=== PATIENT | female | born 1950 | race Caucasian/White ===

== ENCOUNTER 2017-10-14 08:14 | Inpatient (IN) | payer OTHER ==
[~2017-10-14] VITALS: Ht 165.1 cm; Wt 34.0 kg
--- NOTE | ~2017-10-14 | O ---
[facility] [place] [address] OPERATIVE REPORT Name: DAVE ARIZA Room #: 423-1 ADM IN M.R.#: [id number] Admission: 10/14/17 Attend Phys: Obed Jaime MD Discharge: Date of : 46 Report #: [id number] THIS REPORT FOR: //name// CC: Isael Jaime DATE OF SERVICE: 10/14/2017 PREOPERATIVE DIAGNOSES: Abdominal pain, back pain, bloating, weight loss, small bowel intussusception, possible small bowel tumor. POSTOPERATIVE DIAGNOSES: Abdominal pain, back pain, bloating, weight loss, small bowel intussusception, possible small bowel tumor, 2 small bowel lesions in the ileum with mesenteric implant, possible carcinoid. SURGEON: Obed Jaime M.D. ANESTHESIA: General. PROCEDURES PERFORMED: 1. Diagnostic laparoscopy. 2. Mini laparotomy with small bowel resection, removing 110 cm. This was about 2 feet proximal to the ileocecal valve. COMPLICATIONS: None. ESTIMATED BLOOD LOSS: 40 mL. DESCRIPTION OF PROCEDURE: With the patient under anesthesia, abdomen was prepped and draped in a sterile fashion. Timeout was performed. A 1 cm incision was made above the umbilicus. Veress needle was then placed through peritoneum, abdominal cavity was insufflated with CO2. The pneumoperitoneum was established rather easily. The patient is also thin from her severe weight loss. A 5 mm trocar was placed through the fascia under visualization. A second 5 mm trocar was placed in lateral abdomen. The liver appeared normal. The colon did have significant stool. There was a tattoo april in the left distal transverse colon from a prior procedure in 2016. The small bowel did have a inhomogeneous appearance. The proximal small bowel was small, the distal small bowel was more dilated, but there was no specific site of inflammation. There was no specific site of intussusception. I did have a fairly good look at the small bowel. At this point I decided to do a mini laparotomy. A small incision about 3 inches was made in the lower abdomen. Fascia was opened under visualization. Peritoneum was opened. The CO2 that was previously present was evacuated. The small bowel was then examined from ligament of Treitz. The small bowel had a normal appearance. When I got down to the ileum, there was a [facility] [address] [place] [address] OPERATIVE REPORT Name: ANNITADAVE Sandra Room #: [address] [place] [address] [place] ..#: [id number] Admission: 10/14/17 Attend Phys: Obed Jaime MD Discharge: Date of : 48 Report #: [id number] 3 cm mass identified in the mesentery. This was suspicious for a metastatic implant. I found in the same region 2 nodules within the small bowel. The distal one was more prominent, measured about 1.5 cm with puckering. This was involving the antimesenteric wall. More proximally, about a feet and a half more proximal there was a second nodule that was present and it was not quite as big and there was thickening in the bowel with slight puckering. I am suspicious that both of these represent carcinoid. The mesenteric mass was evaluated and it has grown into the mesenteric vessel. At this point, I do not think that this mass can be removed without dividing the vessel. The peritoneum over this area was opened up. The root of the mesentery was isolated below the mass. Part of the dissection was used with LigaSure. Then, the mesentery that was attaching to the implant was divided proximally. This was divided between clamps and then doubly ligated with 2-0 Vicryl ties proximally. The bowel did demarcate, was not a dramatic difference, but slight duskiness to the bowel that was supplied by the vessel. This included the bowel that was diseased. So, instead of resecting the bowel lesion in two separate resections, this was removed en bloc. This included 10 cm of small bowel. This was approximately 1-1/2 from the ileocecal valve. The rest of the bowel was viable. The mesentery division was followed to the bowel, at which point the bowel was viable along the edges here. The bowel was divided with DIEGO. Proximally and distally it was divided without difficulty. The 2 lesions were removed again en bloc. Specimens will be sent to pathology. The two ends of the bowel were aligned. A 3-0 Vicryl was used to sew the antimesenteric part of the bowel together. The corner staple line was removed. DIEGO was placed down each limb. DIEGO was brought together, fired, creating a [id number] anastomosis. No bleeding was seen from the anastomosis. It had good blood supply. The enterotomy where the DIEGO was put through was closed with TA 60. I was able to milk some contents distally to this area and it dilated well and there was no leak. There is a good opening, about 2.5 cm size opening between the bowel. The mesentery was then reapproximated with 3-0 Vicryl suture. No bleeding from the mesentery. A small 2 cm hematoma was found in the mesentery proximally, but this was not expanding. Abdominal cavity was irrigated. The abdomen was then closed with 0 looped PDS. Skin was irrigated. Skin was closed with 5-0 PDS. The 5 mm trocar site was closed with 5-0 PDS. Band-Aids applied. A 4 x 4 was placed over the main incision and an Op-Site was used for dressing. The patient tolerated the procedure well. By: 1339 [id number] Obed Jaime MD /nt
--- NOTE | ~2017-10-14 | HC ---
[facility] [place] [address] CONSULTATION Name: DAVE ARIZA Room #: 225-P ADM IN M.R.#: [id number] Admission: 10/14/17 Attend Phys: Obed Jaime MD Discharge: Date of : 46 Report #: [id number] THIS REPORT FOR: //name// CC: Isael Jaime DATE OF SERVICE: 10/19/2017 REQUESTING PHYSICIAN: Obed Jaime MD REASON FOR CONSULTATION: Ileal carcinoid tumor. HISTORY OF PRESENT ILLNESS: The patient is a very pleasant 67-year-old female from the [place] area who lives in [facility] at [address] [place] [address], who reports about a 10-year history of abdominal pain. She also had had some GI bleeding about 2 years ago, had a colonoscopy with removal of a polyp; bleeding went away but found that the pain has persisted. She also then because of various reasons, had a CT abdomen, I believe at the [facility] or diagnostic imaging at the [facility], and I am not sure what this showed, there is no copy on the chart. The patient underwent surgery on 10/16/[address] Obed Jaime. He describes finding a mesenteric mass right in the bowel and following two small ileal nodules. I do not see that he saw other residual disease. The path report talks about mesenteric nodules pleural but then only gives a measurement of one, so I am not sure if that is correct. The patient prior to this had had maybe a 30-pound weight loss over the last 10 years. He had if anything constipation. No diarrhea, no flushing, no headaches. No unusual palpitations. No red flushing, no drop attacks. No dysuria, no blood in urine or stool recently. PAST MEDICAL HISTORY: Notable for Achilles tendon rupture in the past. SOCIAL HISTORY: She studied dance and ballet at [employer] and talked for quite a while. 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 FAMILY HISTORY: Mother of old age several years ago. Father from what sounds like, maybe was chronic myelogenous leukemia; in 1969, he worked at [employer] and maybe had beryllium exposure, unsure if that is related. No children, I believe she has had no pets at home. MEDICATIONS: Here at this time in the hospital currently include potassium chloride 20 mEq b.i.d., magnesium hydroxide p.r.n., Tylenol p.r.n., Lovenox 40 mg in the morning, fentanyl p.r.n., Zofran p.r.n. [facility] [address] [place] [address] CONSULTATION Name: DAVE ARIZA Room #: 225-P [facility] IN M..#: [id number] Admission: 10/14/17 Attend Phys: Obed Jaime MD Discharge: Date of : 46 Report #: [id number] LABORATORY DATA: BUN of 4, creatinine of 0.3. White count of 54, hemoglobin 13.1, MCV 89.6, platelets 255. Differential back in 2016 unremarkable. Liver functions not available on this admit. Imaging from this admit, not anything recent. PHYSICAL EXAMINATION: GENERAL: The patient appears her stated age. VITAL SIGNS: Height is 5 feet 5 inches, which is 165.1 cm; weight is 75 pounds, which is 34.02 kilograms. Blood pressure is 131/81 in the right arm. O2 sat 98%, respirations 18, pulse 86. She is afebrile over the last 24 hours, the current temperature 98.1 this morning. MOOD: She is alert, pleasant, slightly anxious. NEUROLOGIC: Face is symmetrical. Speech and thought pattern appear to be normal. She is moving all extremities without any tremor or dysfunction. LUNGS: Appear to be clear with symmetric expansion without wheezes, rhonchi. HEART: Appears regular rate. LYMPHATICS: No enlarged lymph nodes in the supraclavicular, cervical, axillary or inguinal region. ABDOMEN: Postop, not examined today. EXTREMITIES: Without clubbing or cyanosis. DISCUSSION: Discussed with the patient that she has had resection of an ileal carcinoid done as an outpatient, we would like to consider a Dotatate PET for staging studies since she had a mesenteric mass and also the lymph node involvement. She asked whether her abdominal pain will resolve. I told her I am not sure, but I am not sure if this was causing it. We also talked we will be checking a chromogranin A with urinary 5-HIAA 24-hour urine studies as well as a serotonin level. We will also need to get the CAT scan from [facility]. The patient would like to see me in 3 or 4 weeks; before scheduling any of these tests, we will call her. We will also see her tomorrow if she is still in the hospital. We will also be aware of if she asks questions. We did give her one of my business cards. <ELECTRONICALLY SIGNED> By: Altaf King MD 10/20/17 0707 [id number] [id number] Altaf King MD /nt
--- NOTE | ~2017-10-14 | PATH ---
[facility] [place] [address] PATHOLOGY RPT PROCEDURE Name: HARINI CHAN Sandra Room #: 225-P ADM IN M.R.#: [id number] Admission: 10/14/17 Date of : 46 Discharge: Report #: [id number] Path Case #: [id number] [facility] Accession Number: [id number] . 01 Material submitted: . SMALL BOWEL STITCH EDDY TUMOR . 01 Clinical history: . 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 02 Diagnosis: Small bowel, small bowel tumor x 2, resection: - WELL DIFFERENTIATED NEUROENDOCRINE TUMOR (CARCINOID TUMOR), PLEASE SEE SYNOPTIC REPORT ASSEMBLED. - TWO SEPARATE TUMOR NODULES IDENTIFIED (MULTIPLE TUMORS) - EXTENSIVE LYMPH-VASCULAR SPACE INVASION IDENTIFIED - MESENTERIC NODULES IDENTIFIED WITH THE LARGEST NODULE MEASURING 3.5 CM IN GREATEST DIMENSION. - TWELVE LYMPH NODES SHOWING METASTATIC CARCINOID TUMOR OF 21 SAMPLED (12/21). - Margins of resection free of malignancy. . . Cancer Case Summary . SMALL BOWEL NEUROENDOCRINE TUMOR . Procedure ___ Segmental resection, small intestine . Tumor Site ___ Small intestine, not otherwise specified . Tumor Size Greatest dimension (centimeters): 2.1 cm . Tumor Focality ___ Multifocal (specify number of tumors): 2 . Histologic Type and Grade ___ G2: Well-differentiated neuroendocrine tumor . Mitotic Rate ___ 2-20 mitoses/2mm2 . Ki-67 Labeling Index ___ Not applicable [facility] [address] [place] [address] PATHOLOGY RPT PROCEDURE Name: ANNITAHARINI Room #: 225-P [facility] IN .R.#: [id number] Admission: 10/14/17 Date of : 46 Discharge: Report #: [id number] Path Case #: [id number] . Tumor Extension ___ Tumor invades visceral peritoneum (serosa) . Margins ___ All margins are uninvolved by tumor Margins examined: both mucosal margins free; not designated Distance of tumor from closest margin (millimeters or centimeters): 9 mm . Radial or Mesenteric Margin ___ Uninvolved by tumor . Lymphovascular Invasion ___ Present . Perineural Invasion ___ Present . Large Mesenteric Masses (>2 cm) ___ Present, largest measuring 3.5 cm Specify number: multiple . Regional Lymph Nodes . Number of Lymph Nodes Involved: 12 . Number of Lymph Nodes Examined:21 . Pathologic Stage Classification (pTNM, AJCC 8th Edition) Note: Reporting of pT, pN, and (when applicable) pM categories is based on information available to the pathologist at the time the report is issued. . . TNM Descriptors ___ m (multiple primary tumors) . Primary Tumor (pT) ___ pT4(m): Invades visceral peritoneum (serosal) or other organs or adjacent structures . Regional Lymph Nodes (pN) ___ pN2: Large mesenteric masses (>2 cm) and/or extensive douglas deposits (12 or greater), especially those that encase the superior mesenteric vessels . Distant Metastasis ___ pMx: Not known LBQ/10/18/2017 [facility] [address] [place] [address] PATHOLOGY RPT PROCEDURE Name: HARINI CHAN Room #: 225-P [facility] IN [facility].#: [id number] Admission: 10/14/17 Date of : 46 Discharge: Report #: [id number] Path Case #: [id number] . 02 Comment: Shipping Room Supervisor slides were co-reviewed by Dr. Jerry Burnett who concurs with my diagnosis. . Findings of this case were discussed with Dr. Obed Jaime at approximately 12:50 p.m. on 10/18/17. (IUV:db; 10/18/2017) . 02 Electronically signed: . Rosita Bey MD, Pathologist NPI- [id number] . 01 Gross description: . The specimen is received in formalin, labeled "Harini Chan, small bowel, stitch eddy tumor" and consists of an unoriented segment of small intestine measuring 46.8 cm in length and ranging from 2.2-3.1 cm in diameter. Both resection margins are stapled closed. The serosa is eden-green and shiny with two sutures designating "tumor". The mesenteric fat measures up to 5.7 cm. There is a mesenteric nodule which measures 4.6 x 2.9 x 2.8 cm and extends to within 2.4 cm of the tumor designating sutures. The nodule has two cauterized possible margins which are differentially inked blue and green. The small intestine is opened longitudinally to reveal two masses. The first measures 2.1 x 1.8 x 0.9 cm and is green-eden and sessile mass which extends to 13.5 cm of the nearest resection margin, 31.0 cm of the farthest resection margin, and 1.5 cm of the mesenteric margin. Sectioning through the mass reveals invasion into the muscular wall. The second mass is green-eden, sessile and measures 1.4 x 1.2 x 0.6 cm which extends to within 0.9 cm of the nearest stapled resection margin, greater than 40 cm from the farthest resection margin, and 0.8 cm of the mesenteric margin. Sectioning through the second mass reveals containment within the mucosa. The remainder of the mucosa is green-eden with no additional polyps or mass lesions. Sectioning through the mesenteric nodule reveals multiple lymph node candidates ranging from 0.2 cm to 3.5 cm in greatest dimension. The mesenteric fat is sectioned to reveal multiple lymph node candidates ranging from 0.2 cm to 0.9 cm. Shipping Room Supervisor sections are submitted as follows: . A1: Resection margin closest to mass one A2: Resection margin furthest from mass one and closest to mass two A3-A9: Entire first mass A10-A13: Entire second mass A14: Unremarkable mucosa A15-A20: Shipping Room Supervisor mesenteric nodule/lymph nodes A21-A22: Additional intact lymph node candidates (SDY; 10/17/2017) [facility]/[address] [address] PATHOLOGY RPT PROCEDURE Name: HARINI CHAN Room #: 225-P ADM IN M.R.#: [id number] Admission: 10/14/17 Date of : 46 Discharge: Report #: [id number] Path Case #: [id number] . 02 Pathologist provided ICD-10: C7A.019, C7B.01 . 02 CPT . 206218 Performed at: 01 [facility] Daria Coles [address], [place], [place] [id number] MD Alex Pimentel MD Phone: [phone] Performed at: [address] [facility] [address] [id number] MD Rosita Bey MD Phone: [phone]
--- NOTE | ~2017-10-14 | HC ---
[facility] [place] [address] CONSULTATION Name: DAVE ARIZA Room #: 423-1 ADM IN M.R.#: [id number] Admission: 10/14/17 Attend Phys: Oebd Jaime MD Discharge: Date of : 48 Report #: [id number] THIS REPORT FOR: //name// CC: Martha Jaime ATTENDING PHYSICIAN: Dr. Jaime. REASON FOR CONSULTATION: Medical management. HISTORY OF PRESENT ILLNESS: The patient is a 67-year-old female with a history of abdominal pain. She was admitted for surgical treatment due to findings of a mass. She was a new patient to our practice several days ago and saw Dr. Haji. She reported a 20-pound weight loss with abdominal discomfort and distention, but also problems with constipation. Lab work obtained at that time was fairly unremarkable and a CT of the abdomen was obtained at an outlying facility. I do not have a copy of that report, but it apparently suggested an ileal mass. She was taken to the operating room yesterday by Dr. Jaime where 2 ileal masses were found and she underwent diagnostic laparoscopy with small bowel resection and resection of mesenteric mass. PAST MEDICAL HISTORY: Osteoporosis. She had vertebroplasty with kyphoplasty in 2016. PAST SURGICAL HISTORY: None. FAMILY HISTORY: Noncontributory. SOCIAL HISTORY: No chronic alcohol or tobacco use. ALLERGIES: CORTISONE. MEDICATIONS: None. REVIEW OF SYSTEMS: She complains of some mild nausea. Otherwise, no headache, chest pain, shortness of breath. She is not having significant abdominal pain. No diarrhea, dysuria, myalgias, arthralgias, syncope or fall. PHYSICAL EXAMINATION: VITAL SIGNS: Temperature 37.1, pulse 73, respirations 16, blood pressure 136/79, O2 sat 90% on room air. GENERAL: She is awake and alert, in no distress. HEAD AND NECK: Unremarkable. LUNGS: Clear. HEART: Regular. ABDOMEN: Soft, hypoactive bowel sounds. She has a closed midline incision with a dressing. [facility] [address] [place] [address] CONSULTATION Name: DAVE ARIZA Room #: [address] [place] [address] [place] [facility].#: [id number] Admission: 10/14/17 Attend Phys: Obed Jaime MD Discharge: Date of : 46 Report #: [id number] EXTREMITIES: No cyanosis, clubbing, edema. NEUROLOGIC: She has diffuse muscle atrophy and signs of cachexia throughout. LABORATORY REVIEW: Potassium is 3.0. ASSESSMENT: 1. Ileal mass. 2. Small-bowel obstruction. 3. Status post diagnostic laparoscopy and bowel resection. 4. Hypokalemia. PLAN: I will follow her medically during her stay. Replace electrolytes for now. Thank you for the consultation. <ELECTRONICALLY SIGNED> By: Pa Campbell MD 10/16/17 0841 0838 1120 Pa Campbell MD /nt
[~2017-10-14 08:14] MED LIST: ATIVAN0.5 MG PO; COLACE100 MG PO; MIRALAX17 GM PO; NORCO 5-325 TA1 EACH PO; PAXIL10 MG; PROTONIX40 MG PO; VITAMIN B-12500 MCG; VOL-NATE TABLE1 EACH
[2017-10-14 15:23] VITALS: BP 121/75
[2017-10-14 20:00] VITALS: BP 158/94
[2017-10-15 04:31] VITALS: BP 136/79
[2017-10-15 04:58] LABS: HEMATOCRIT 39.2 % (37.0-47.0); HEMOGLOBIN 13.2 gm/dL (12.0-15.0); MCH 30.2 pg (26.0-34.0); MCHC 33.6 g/dL (28.0-37.0); MCV 89.8 fL (80.0-100.0); RBC 4.36 mil/uL (4.20-5.00); RDW 13.2 % (10.5-14.5); WBC 10.2 thou/uL (4.0-11.0)
[2017-10-15 05:15] LABS: CALCIUM 7.9 mg/dL (8.5-10.1); CREATININE 0.4 mg/dL (0.6-1.0)
[2017-10-15 09:00] VITALS: BP 136/79
[2017-10-15 20:00] VITALS: BP 153/80
[2017-10-16 05:03] VITALS: BP 134/85
[2017-10-16 06:04] LABS: HEMATOCRIT 38.6 % (37.0-47.0); HEMOGLOBIN 13.1 gm/dL (12.0-15.0); MCH 30.4 pg (26.0-34.0); MCHC 33.9 g/dL (28.0-37.0); MCV 89.6 fL (80.0-100.0); RBC 4.31 mil/uL (4.20-5.00); WBC 5.4 thou/uL (4.0-11.0)
[2017-10-16 06:16] LABS: CALCIUM 8.5 mg/dL (8.5-10.1); CREATININE 0.4 mg/dL (0.6-1.0)
[2017-10-16 06:32] LABS: POTASSIUM 3.3 mmol/L (3.5-5.1)
[2017-10-16 16:07] VITALS: BP 140/91
[2017-10-16 19:40] VITALS: BP 130/91
[2017-10-17 03:45] VITALS: BP 148/99
[2017-10-17 06:03] LABS: CALCIUM 8.3 mg/dL (8.5-10.1); CREATININE 0.3 mg/dL (0.6-1.0); POTASSIUM 3.3 mmol/L (3.5-5.1)
[2017-10-17 07:46] VITALS: BP 143/94
[2017-10-17 16:00] VITALS: BP 128/82
[2017-10-17 19:40] VITALS: BP 133/87
[2017-10-18 04:35] VITALS: BP 114/68
[2017-10-18 07:12] VITALS: BP 109/73
[2017-10-18 08:31] VITALS: BP 109/73
[2017-10-18 12:40] VITALS: BP 145/92
[2017-10-18 20:00] VITALS: BP 136/74
[2017-10-19 07:20] VITALS: BP 131/81
[2017-10-19 20:21] VITALS: BP 128/79
[2017-10-20 08:09] VITALS: BP 124/79
[2017-10-20 19:21] VITALS: BP 138/89
[2017-10-21 08:25] VITALS: BP 128/87
[2017-10-21 21:24] VITALS: BP 127/88
[2017-10-22 08:23] VITALS: BP 126/82
[2017-10-22 19:19] VITALS: BP 120/78
[2017-10-23 08:44] VITALS: BP 122/71
[2017-10-23] MEDS ORDERED: ACETAMINOPHEN325 M1 PO (13:29)
[2017-10-23 13:48] VITALS: BP 122/71
[2017-10-23 13:50] VITALS: BP 122/71
[2017-10-23 13:51] VITALS: BP 122/71
== END 2017-10-23 14:50 | disposition home health service (06) | DRG 330 ==
LOC: GI 08:14 → 4E 13:53 → SICU 10-18 11:38
PROVIDERS: Internal Medicine Geriatric Medicine; Surgery
PROC: 0DB80ZZ Excision of Small Intestine, Open Approach (ICD-10-PCS; principal; 2017-10-14)
PROC: 0DJD4ZZ Inspection of Lower Intestinal Tract, Percutaneous Endoscopic Approach (ICD-10-PCS; principal; 2017-10-14)
DX: C17.2 Malignant neoplasm of ileum (principal); K56.1 Intussusception; K56.7 Ileus, unspecified; Z79.899 Other long term (current) drug therapy; M79.81 Nontraumatic hematoma of soft tissue; M81.0 Age-related osteoporosis without current pathological fracture; E87.6 Hypokalemia; Z88.8 Allergy status to other drugs, medicaments and biological substances; Z80.6 Family history of leukemia
CPT/HCPCS: 10783; 15002; 50101; 50411; 50555; 50942; 51390; 51391; 51435; 53307; 53310; 56524; 56525; 56526; 56527; 62110; 62900; 70005

== ENCOUNTER 2018-05-13 21:37 | Inpatient (IN) | payer OTHER ==
[~2018-05-13] VITALS: Ht 160 cm; Wt 36.6 kg
--- NOTE | ~2018-05-13 | D ---
[facility] [place] [address] DISCHARGE SUMMARY Name: DAVE ARIAZ Room #: 224-P ADM IN M.R.#: [id number] Admission: 05/14/18 Attend Phys: Chasity Bell Discharge: Date of : 46 Report #: [id number] THIS REPORT FOR: //name// CC: Nishant Haji FINAL DIAGNOSES: 1. Abdominal pain. 2. Chronic constipation. 3. Carcinoid tumor of the gastrointestinal tract. HOSPITAL COURSE: The patient was admitted with abdominal pain. She was seen by the GI and Surgery services. Gastric emptying time was unremarkable. Ultimately, there were no plans for further invasive testing or treatment. She continued to complain of nausea and burning symptoms, difficulty eating, abdominal bloating, cramping pain and constipation. Multiple medications were adjusted and tried. We attempted to place her in a senior living unit, but her physical activity level was of too high of a level to meet criteria. She was not a hospice candidate at this point. We spent the last several days of her discharge trying to manipulate oral medications to manage her issues, so she can function at home. Ultimately, she seemed to show improvement with dicyclomine, Carafate, Pepcid, Reglan, p.r.n. Zofran, MiraLax, and Zoloft for anxiety. PHYSICAL EXAMINATION: GENERAL: On the day of discharge, she was resting comfortably in bed. VITAL SIGNS: She was afebrile, pulse 77, respirations 14, blood pressure 128/82 and O2 sat 98% on room air. LUNGS: Clear. HEART: Regular. ABDOMEN: Slightly distended, soft, normoactive bowel sounds. No rebound or guarding and nontender. EXTREMITIES: Showed no edema. DISPOSITION: She is discharged to home with diet and activity as tolerated. I have asked her to get a liquid supplement 3-4 times a day. She will have home health, followup with Dr. Haji in 1-2 weeks. MEDICATIONS: Reglan 10 mg with meals, Zofran 4 mg p.r.n., dicyclomine 10 mg q.i.d., tramadol as needed, Zoloft 25 mg, MiraLax daily, Senokot-S two daily, Pepcid 20 mg daily and Carafate 1 gram liquid 4 times a day for 2 weeks. By: 1111 1209 Pa Campbell MD /nt
--- NOTE | ~2018-05-13 | HC ---
[facility] [place] [address] CONSULTATION Name: ANNITADAVE Sandra Room #: 357-P ADM IN M.R.#: [id number] Admission: 05/14/18 Attend Phys: Chasity Bell Discharge: Date of : 46 Report #: [id number] THIS REPORT FOR: //name// CC: Nishant Haji REASON FOR CONSULTATION: Abdominal pain, possible partial small bowel obstruction. HISTORY OF PRESENT ILLNESS: The patient is a 68-year-old who is known to me from prior treatment in September where she had diagnosis of intussusception. The patient was explored and the patient was found to have 2 carcinoid lesions and a large deposit of carcinoid in the mesentery. In order to get the mesentery removed, 110 cm small bowel had to be removed due to the devascularization of the mesentery. The patient had an anastomosis performed. She tolerated that surgery well. The patient was a dancer, anaa. Has a lot of corkiness about her. The patient apparently has a very unusual bowel habits and she says her whole family has problem with their colons not functioning. The patient has been complaining of burning pain through the body. She has gotten worse for the last week or so. Says she has a rash. I do not think she has had any vomiting. The patient has a very specific routine that she does in order to get her bowels to work. The patient came to the ER because of the above symptoms and a CT performed suggests possible early small bowel obstruction. There is a focally distended air and fluid filled small bowel in the mid abdomen. I reviewed the CT scan. I do not think she has a small bowel obstruction. She has fairly large amount of stool in her colon. PHYSICAL EXAMINATION: The patient is alert and the way the patient has somewhat of a hyperness in her speech. This is same as she was when I saw her last time in September. The patient does have a hard stool in her right colon. She is soft and no mass detected. Midline incision is healed well. IMPRESSION: The patient with constipation. I do not know if this is due to lack of poor oral intake to push it through, but it has gotten really firm on the right side which is unusual, one would expect the stool to there to be more mushy. The patient could have colonic dysmotility. She describes that her sister, mom have the same issues. The patient has a regimen or routine that she goes through to have bowel movements. RECOMMENDATION: Recommend trying magnesium citrate to get her to clean out. She asked me since her colon is not working whether she could have it removed, I do think that would be an option. Possibly could do a diverting ileostomy, but we will discuss with her further on this. She does have some burning discomfort. We will put her on Pepcid. Potassium is low, we will replace [address] [address] CONSULTATION Name: DAVE ARIZA Room #: 357-P ADM IN M.R.#: [id number] Admission: 05/14/18 Attend Phys: Chasity Bell Discharge: Date of : 46 Report #: [id number] potassium. May not be a bad idea to have Dr. Tobar see her, he has seen her before. Possible EGD to rule out an ulcer disease. By: 1140 1415 Obed Jaime MD /nt
[~2018-05-13 21:37] MED LIST changes: +ACETAMINOPHEN325 M1 PO
[2018-05-13 21:59] VITALS: BP 160/110
[2018-05-13 22:27] LABS: URINE BILIRUBIN NEGATIVE (Negative); URINE BLOOD NEGATIVE (Negative); URINE CLARITY SL CLOUDY; URINE COLOR YELLOW; URINE GLUCOSE-RANDOM* NEGATIVE (Negative); URINE KETONES NEGATIVE (Negative); URINE LEUKOCYTES-REFLEX NEGATIVE (Negative); URINE NITRITE-REFLEX NEGATIVE (Negative); URINE PROTEIN (DIPSTICK) NEGATIVE (Negative); URINE SPECIFIC GRAVITY 1.015 (1.005-1.035); URINE UROBILINOGEN 0.2 E.U./dl (0.2-1.0)
[2018-05-13 23:04] LABS: ABSOLUTE NEUTROPHILS 4.4 thou/uL (1.4-8.2); BASOPHILS 0.8 % (0.0-2.0); EOSINOPHILS 1.2 % (0.0-3.0); HEMATOCRIT 40.7 % (37.0-47.0); HEMOGLOBIN 14.1 gm/dL (12.0-15.0); LYMPHOCYTES 12.2 % (24.0-44.0); MCH 31.5 pg (26.0-34.0); MCHC 34.7 g/dL (28.0-37.0); MCV 90.7 fL (80.0-100.0); MONOCYTES 9.6 % (1.0-8.0); PLATELET COUNT 320 thou/uL (150-400); POLYS 76.2 % (36.0-66.0); RBC 4.49 mil/uL (4.20-5.00); RDW 13.2 % (10.5-14.5); WBC 5.8 thou/uL (4.0-11.0)
[2018-05-13 23:12] LABS: ANION GAP 7 mmol/L (7-16); BUN 7 mg/dL (7-18); CALCIUM 9.1 mg/dL (8.5-10.1); CHLORIDE 97 mmol/L (98-107); CO2 28 mmol/L (21-32); CREATININE 0.3 mg/dL (0.6-1.0); GLUCOSE 94 mg/dL (74-106); POTASSIUM 3.4 mmol/L (3.5-5.1); SODIUM 132 mmol/L (136-145)
[2018-05-13 23:20] LABS: ALBUMIN 3.5 g/dL (3.4-5.0); LIPASE 308 U/L (73-393); SGOT 24 U/L (15-37); SGPT 31 U/L (30-65); TOTAL BILIRUBIN 0.8 mg/dL (<0.1-1.0); TROPONIN-I <0.06 ng/mL (<0.06)
[2018-05-14 02:07] VITALS: BP 157/86
[2018-05-14 02:28] VITALS: BP 150/99
--- NOTE | 2018-05-14 03:40 | NUR ---
PT ARRIVED FROM ER VIA CART. ONE PERSON ASSIST TO TRANSFER FROM CART TO BED. PT AMBULATED WITH SBA TO TOILET AND BACK. NO SOA NOTED EVEN WITH AMBULATING AND TALKNG. C/O 7/10 GENERALIZED ABDOMINAL PAIN, AND BACK PAIN. DENIES NEED FOR ANY FURTHER PAIN MEDICATION AT THIS TIME DESPITE STATING THAT 5/10 WOULD BE HER PAIN GOAL. DENIES ANY NAUSEA AT THIS TIME. ADMISSION ASSESSMENTS COMPLETED. PT INFORMED AND WAS AWARE OF NPO STATUS. WILL PROVIDE SWABS. PT REPORTING THAT AFTER SHE HAD SURGERY IN SEPTEMBER OF 2017 SHE CHOSE NOT TO FOLLOW UP WITH DR. HOLLEY. SHE DID NOT PROVIDE ANY DETAILS FOR THAT DECISION. SHE DID STATE THAT IF THE CANCER HAS RETURNED THAT SHE WAS "READY FOR SOME DILAUDID AND TO BE LET GO." SHE DENIED THAT SHE WAS HAVING ANY SUICIDAL THOUGHTS.
--- NOTE | 2018-05-14 04:48 | NUR ---
PT MAKING SLOW PROGRESS TOWARDS GOALS. PT REFUSING TO TAKE ANYTHING BY MOUTH. WOULD ONLY ALLOW ORAL CARE ONCE WITH SOME ORAL MOISTURIZER. NOTED ST DIET RECOMMENDATIONS. HAS DENIED ANY PAIN. SHAKES HER HEAD LEFT-RIGHT FOR NO AND UP-DOWN FOR YES.
[2018-05-14 05:02] VITALS: BP 140/92
[2018-05-14 08:07] VITALS: BP 129/83
--- NOTE | 2018-05-14 11:11 | NUR ---
ASSESSMENT-PT LIVES ALONE IN HER APT. SHE HAS A WALKER BUT SAYS SHE USES IT VERY LITTLE. PT TELLS ME SHE TAKES THE BUS TO GET HER GROCERIES AND HAS A SMALL CART SHE PULLS. PT SAYS HER SISTER IS ONLY TO BE CONTACTED IN EMERGENCY SITUATION. PT DENIES HAVING HH SERVICES IN THE PAST. PT SAYS SHE IS AWAITING REC. FROM DR PARADA. FOLLOWING TO ASSIST WITH DC PLANNING.
--- NOTE | 2018-05-14 11:19 | EKG ---
[place] [address] [facility] [place] [address] ELECTROCARDIOGRAM REPORT Name: DAVE ARIZA Room #: 357-P ADM IN M.R.#: [id number] Admission: 05/14/18 Attend Phys: Chasity Bell Discharge: Date of : 46 Report #: [id number] THIS REPORT FOR: //name// [facility] ED Test Date: 2018-05-13 Test Time: 22:30:21 Pat Name: DAVE ARIZA Department: Room: 357 Gender: F Historical Site Guide: LETY : 1950 Requested By: Russ Becerril Order Number: [id number] MD: Ross Clarke Measurements Intervals [place] Rate: 67 P: 55 LA: 143 QRS: -62 QRSD: 169 T: 21 QT: 415 QTc: 438 Interpretive Statements Sinus rhythm Multiple premature complexes, vent & supraven Probable left atrial enlargement RBBB and LAFB Compared to ECG 08/27/2015 22:25:07 Left anterior fascicular block now present Right bundle-branch block now present Atrial premature complex(es) no longer present Left-axis deviation no longer present Myocardial infarct finding no longer present Electronically Signed On 05-14-2018 11:19:33 [employer]ITAL [employer] by Ross Clarke [email or web address] <ELECTRONICALLY SIGNED> By: Ross Clarke MD 05/14/18 1119 29 29 Ross Clarke MD /EPI
--- NOTE | 2018-05-14 15:53 | NUR ---
Assumed care of patient at 0700. Vitals have been stable. Patient is alert and oriented x4, but extremely anxious / high-strung. Patient with lots of questions - patient has been reassured throughout the shift and plan of care has been discussed with her. Pleasant, verbalizes understanding. Dr. Jaime rounded - does not think is SBO, thinks patient is more constipated. Okay for clear liquids, order for Mag Citrate. Updated patient, who states, she will not tolerate anything for a bowel regimen. States Mag Citrate will not work, enema, suppository, Miralax, MOM will not work for her. Refusing anything to help clear bowels. Requesting that if doctors have no other suggestions for her, she would like to go home with hospice. Is open for more surgery to determine what is the cause of her GI problems / possible recurring cancer, open to consult to another physician, etc. Just not agreeable with bowel regimen, because states she has tried it all, and none of it works; would rather go home and do it her own way. Is okay with staying overnight, continuing IVF, Fentanyl and Zofran PRN and speaking with Dr. Haji tomorrow. Fentanyl and Zofran has greatly helped with pain and nausea, has allowed patient to rest this shift. Requesting DNR status. Updated Dr. Haji on conversation with patient. To round on patient tomorrow and discuss next step. Okay for DNR. Fall precautions remain in place, up with SBA. Bilateral SCDs on. Attempting to progress towards POC. Will continue to monitor.
[2018-05-14 16:15] VITALS: BP 168/111
[2018-05-14 19:30] VITALS: BP 138/91
[2018-05-15 04:00] VITALS: BP 122/70
--- NOTE | 2018-05-15 04:08 | NUR ---
ASSUMED PT CARE AROUND 1900. A&OX4. C/O GENERALIZED PAIN, ABDOMINAL PAIN, AND BACK PAIN. ALSO C/O NAUSEA. PAIN MEDICATION AND NAUSEA MEDICATION GIVEN PRN, WITH SOME RELIEF OF SYMPTOMS. PT SLEPT MOST OF THE NIGHT. SHE IS VERY ANXIOUS WHEN AWAKE. PT STATED SHE FEELS LIKE THERE IS NOTHING ELSE THE DRS CAN DO FOR HER MEDICAL ISSUES, AND SHE WANTS TO TALK TO DR CANDIS BRIAN ABOUT GOING ON HOSPICE. IVF INFUSING ORDERED. UP TO BSC TO VOID. GOOD URINE OUTPUT. FALL PRECAUTIONS IN PLACE. NOT PROGRESSING WELL TOWARD POC GOALS. WILL CONTINUE TO MONITOR FURTHER.
[2018-05-15 05:49] LABS: CALCIUM 8.1 mg/dL (8.5-10.1); CREATININE 0.4 mg/dL (0.6-1.0)
[2018-05-15 08:04] VITALS: BP 135/75
--- NOTE | 2018-05-15 09:36 | H ---
[facility] [place] [address] HISTORY AND PHYSICAL Name: DAVE ARIZA Room #: 357-P ADM IN M.R.#: [id number] Admission: 05/14/18 Attend Phys: Chasity Bell Discharge: Date of : 46 Report #: [id number] THIS REPORT FOR: //name// CC: Nishant Haji DATE OF SERVICE: 05/14/2018 CHIEF COMPLAINT: This is a 68-year-old female with abdominal pain. 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 She did a little bit better overall, but now is having difficulty again with difficulty eating, crampy abdominal pain and ongoing weight loss and decline. PAST MEDICAL HISTORY: Noteworthy for those findings in the HPI. She has had previous osteoporosis issues with kyphoplasty. She has had an Achilles tendon repair. She has intolerance to steroids. She is on minimal medications at this time. FAMILY HISTORY: Really is noncontributory. 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 She does not smoke or drink. REVIEW OF SYSTEMS: Twelve-point otherwise negative. PHYSICAL EXAMINATION: GENERAL: Shows a very weakened individual, but she is awake, alert and oriented, in no distress. VITAL SIGNS: Stable. HEENT: Otherwise, negative. NECK: Supple, without thyromegaly or adenopathy. CHEST: Diminished. CARDIOVASCULAR: Showed a regular rate and rhythm without murmur. ABDOMEN: Soft and nontender without hepatosplenomegaly. Bowel sounds are somewhat hyperactive. EXTREMITIES: Show muscle wasting. NEUROLOGIC: Showed nothing focal. LABORATORY DATA: Laboratory parameters were not helpful. CT imaging suggested there might be a partial small-bowel obstruction. ASSESSMENT AND PLAN: This is a patient with carcinoid disease, who is having [facility] [place] [address] HISTORY AND PHYSICAL Name: DAVE ARIZA Room #: 357-P [facility] IN [facility]#: [id number] Admission: 05/14/18 Attend Phys: Chasiyt Bell Discharge: Date of : 46 Report #: [id number] ongoing issues with either ileus or a partial small-bowel obstruction. We will use bowel rest, IV fluids, and surgical consultation at this time. <ELECTRONICALLY SIGNED> By: Nishant Haji MD 05/15/18 0936 1127 1137 Nishant Haji MD /nt
[2018-05-15 15:12] VITALS: BP 175/106
[2018-05-15 15:14] VITALS: BP 175/103
--- NOTE | 2018-05-15 15:46 | NUR ---
ASSUMED PATIENT CARE AT 0715. A&OX4. COMPLAINTS OF ABDOMINAL PAIN. IN THE MORNING PATIENT WAS STATING THEY WERE READY TO GO ON HOSPICE, LATER IN THE AFTERNOON PATIENT STATED THAT THEY WERE STARTING TO FEEL BETTER AND MORE ALIVE AND MAYBE DID NOT WANT TO DISCHARGE WITH HOSPICE. PATIENT IS CONSTIPATED BUT REFUSED MAG CITRATE YESTERDAY. PATIENT ALSO REFUSING REGLAN ORDER FROM GI STATING "I WANT TO TALK TO CANDIS BRIAN ABOUT THIS MEDICATION BEFORE I TAKE IT." ABLE TO MAKE NEEDS KNOWN.
[2018-05-15 18:51] VITALS: BP 160/110
--- NOTE | 2018-05-15 22:53 | NUR ---
PATIENT IS ALERT AND ORIENTED. PATIENT IS SBA TO THE BSC. PATIENT IS ANXIOUS. PATIENT LBM WAS THE 23ND DUE TO POOR PO INTAKE. PATIENT STATES NO MORE PAIN OR NAUSEA. PATIENT WANTS INFORMATION ON METOCLOPRAMIDE BEFORE SHE'LL TAKE IT. PATIENT IS A DNR. PATIENT IS TRANSFERING TO . REPORT CALLED AND NURSE ACCEPTED PATIENT. WCM. PATIENT LEFT FLOOR WITH BELONGINGS AT 2240.
[2018-05-15 23:00] VITALS: BP 173/113
[2018-05-16 01:46] VITALS: BP 126/85
[2018-05-16 04:00] VITALS: BP 117/70
[2018-05-16 06:12] LABS: CALCIUM 8.5 mg/dL (8.5-10.1); CREATININE 0.3 mg/dL (0.6-1.0); POTASSIUM 3.6 mmol/L (3.5-5.1)
[2018-05-16 08:12] VITALS: BP 148/90
--- NOTE | 2018-05-16 08:58 | NUR ---
ASSUMED CARE OF PT AT 0700. ASSESSMENT COMPLETED AND CHARTED. A&0,X4. DENIES N/V/D AT THIS TIME. PAIN 5/10, DENIES PAIN MEDS AT THIS TIME. WILL CONTINUE TO MONITOR.
--- NOTE | 2018-05-16 11:52 | HC ---
[facility] [place] [address] CONSULTATION Name: DAVE ARIZA Room #: 449-I ADM IN M.R.#: [id number] Admission: 05/14/18 Attend Phys: Chasity Bell Discharge: Date of : 46 Report #: [id number] THIS REPORT FOR: //name// CC: Isael King MD DATE OF SERVICE: 05/15/2018 HISTORY OF PRESENT ILLNESS: The patient is a 68-year-old female with admission for abdominal pain, nausea, vomiting. I had seen the patient several years ago in which she had continued GI bleed and underwent colonoscopy at that time in 2016, which showed multiple polyps, but one in particular was a large polyp in the transverse colon with active bleeding. This was removed. This was a benign lesion. An upper endoscopy at that same time was performed with esophageal dilation. The upper endoscopy was normal. The patient reports a long history of chronic abdominal pain even before her endoscopy as well as constipation, intermittent nausea and vomiting. She had a surgery that showed carcinoid tumor of the small bowel as well as part of the mesentery. She has been followed by Dr. Jaime and Dr. King in the past. She is admitted again for nausea, vomiting, abdominal bloating and pain. She denies any blood in her stools. She reportedly had a GI workup at [facility] this last summer. I do not have a copy of any of these results. It appears she had a repeat colonoscopy at that time as well as imaging. On admission here, the patient underwent a CT scan of the abdomen and pelvis on the that showed mildly distended small bowel with central abdomen, may represent focal ileus or partial obstruction, distal small bowel was normal, thickening in the mid to distal stomach is nonspecific. Multiple compression fractures, appear similar. Dr. Jaime was seen the patient, does not feel that these are signs of obstruction. KUB today showed no evidence of obstruction. PAST MEDICAL HISTORY: Carcinoid resection and small bowel, lumbar fractures, history of kyphoplasty in the past, colon polyps. MEDICATIONS ON ADMISSION: Protonix, Tylenol p.r.n., Colace, vitamin B12, vitamin. ALLERGIES: No known drug allergies, although she does report SHE DOES NOT TOLERATE ERYTHROMYCIN WELL. SOCIAL HISTORY: She denies any tobacco or alcohol use. FAMILY HISTORY: Negative for colon cancer. PHYSICAL EXAMINATION: [facility] [address] [place] [address] CONSULTATION Name: DAVE ARIZA Sandra Room #: 449-I [facility] IN [facility].#: [id number] Admission: 05/14/18 Attend Phys: Chasity Bell Discharge: Date of : 46 Report #: [id number] VITAL SIGNS: Temperature is 98.1, pulse 67, blood pressure 135/75, respiratory rate is 18. GENERAL: She is alert and oriented x 3, in no acute distress. HEENT: Sclerae nonicteric. Oropharynx clear. NECK: Supple without lymphadenopathy. CARDIOVASCULAR: Regular rate and rhythm. CHEST: Clear to auscultation bilaterally. ABDOMEN: Soft. She is mildly tender to palpation diffusely. She is mildly distended. Positive bowel sounds. EXTREMITIES: No cyanosis, clubbing or edema. LABORATORY DATA: Sodium 133, potassium 3.0, chloride 100, bicarbonate 27, BUN 6, creatinine 0.4, AST 24, lipase 308, total bilirubin 0.8, calcium 8.1, alkaline phosphatase 101, ALT 31, total protein ____. WBC is 5.8, hemoglobin 14.1, platelet count is 320. ASSESSMENT AND PLAN: Nausea, vomiting, abdominal pain. This is all chronic. The patient has had a history of large polyps removed in the past. We will need to review what was performed at [facility] within the last year. Apparently, she had a repeat colonoscopy. She also has a previous history of a carcinoid tumor removed in the small bowel. Agree there are no signs of a small bowel obstruction at this time. She may have a dysmotility type of picture. We therefore discussed a trial of Reglan IV. I explained potential side effects. She understands and agrees to proceed. We will start 5 mg IV q.6 hours and observe. The patient, of note, reports no change in the abdominal pain or distention after a large bowel movement; therefore, I doubt just constipation is playing a role. We will continue to follow. Thank you for allowing me to participate in her care. <ELECTRONICALLY SIGNED> By: Yaya Tobar MD 05/16/18 1152 1510 1715 Yaya Tobar MD /nt
[2018-05-16 15:00] VITALS: BP 117/60
--- NOTE | 2018-05-16 15:42 | NUR ---
DR. PARADA INDICATED POSSIBLE DISHCARGE TOMORROW. CM TO FOLLOW INDICATED WITH DC PLANNING.
--- NOTE | 2018-05-16 19:19 | NUR ---
END OF SHIFT. PT IN STABLE CONDITION. DENIES PAIN MEDS AT THIS TIME.
[2018-05-16 19:26] VITALS: BP 151/108
--- NOTE | 2018-05-17 03:19 | NUR ---
Assumed care at 1845. Pt resting bed. She hasnt had a bowel movement. Denies chest pain. Call light within reach. Bed in lowest position. Will continue to monitor.
[2018-05-17 04:01] VITALS: BP 138/87
[2018-05-17 08:17] VITALS: BP 142/83
--- NOTE | 2018-05-17 10:09 | NUR ---
AAOX4. ANXIOUS ABOUT NUCLEAR MED TEST; TEACHING REINFORCED. NPO AND NO NARCOTICS AFTER MIDNIGHT FOR TEST. DOWN AT 0900, BACK ABOUT 1300. WILL CONTINUE TO FOLLOW.
[2018-05-17] MEDS ORDERED: ONDANSETRON HCL4 M2 PO (14:25)
[2018-05-17] MEDS ORDERED: REGLAN 10 MG TA10 MG PO (14:25)
[2018-05-17] MEDS ORDERED: ENULOSE10 GM/15 M PO (14:26)
[2018-05-17 14:29] VITALS: BP 142/83
[2018-05-17 18:25] VITALS: BP 148/100
--- NOTE | 2018-05-18 02:42 | NUR ---
PT RESTED THROUGH MOST OF THE NIGHT PT USED CALL LIGHT EFFECTIVELY NO ISSUES OVERNIGHT.
[2018-05-18 05:00] VITALS: BP 130/82
[2018-05-18 07:15] VITALS: BP 155/102
--- NOTE | 2018-05-18 10:56 | NUR ---
ASSUMED PT CARE AT 0645AM. PT IS A/O X 4 WITH NO CONCERNS OR COMPLAINTS AT THIS TIME. PT IS READY FOR D/C PER . WILL CONTINUE TO LEDA UNTIL THAT TIME.
--- NOTE | 2018-05-18 12:14 | NUR ---
ASSUMED CARE OF PT AROUND 1140, REPORT OF HER D/C BEING IMMINENT. SHE CLAIMS OTHERWISE, FELIX JAMESON STATES SHE IS, CALLED DR. RED FOR RX AND CONFIRMATION. CLIENT UPSET WANTING TO GO TO HOSPICE. DENIES ANY NEED FOR PAIN MEDS AT THIS TIME
--- NOTE | 2018-05-18 12:32 | NUR ---
ORDERS WERE WRITTEN FOR DIHSCAGE YESTERDYA YET PT REMAIND INPATIENT. CARE TEAM HAD INDICATED POSSIBLE DISCHARGE HOME TODAY. IT IS ANTICPATED THAT PT WILL DISHCARGE HOME WITH NO NEEDS. CM TO FOLLOW INDICATED WITH DC PLANNING.
--- NOTE | 2018-05-18 14:11 | NUR ---
D/C ON HOLD. SPOKE W/DR. RED RE: PT'S CONFUSION ON WHETHER SHE'S READY TO BE D/C'D. HE STATES YES. FAMILY HAS CALLED HIM SO HE STATES D/C IS ON HOLD AND LET SW TALK TO FAMILY. SPOKE W/TRINO VIA PHONE ALERTING HER TO 'S REQUEST. SHE ACKNOLWEDGED.
--- NOTE | 2018-05-18 14:36 | NUR ---
PHYSICIAN INDICTED SHORT TERM POST ACUTE CARE STAY MAY BE APPROPRIATE. CM ASKED RN CM TO ORDER PT AND OT EVALS SO REFERRAL CAN BE SENT TO [facility] FOR REVIEW FOR POSSIBLE ADMISSION. AWAITING EVALS.
[2018-05-18 16:20] VITALS: BP 134/75
--- NOTE | 2018-05-18 16:59 | NUR ---
PHYSICIAN CALL: CALLED TO ALERT DR. RED OF DBP BEING >100 AND HE SAID WE'D WATCH IT, ATTRIBUTED IT TO THE GREAT ANXIETY SHE HAS. PT DECLINES ANYTHING FOR PAIN OR NAUSEA AT THIS TIME
--- NOTE | 2018-05-18 17:08 | NUR ---
REFERRAL SENT TO [facility] FOR REVIEW FOR POSSIBLE ADMISSION. HAD HOPED FOR DISCHARGE TO FACILITY MONDAY BUT NEEDED THERAPY EVALS COMPLETED. FAX EVALS AND REFERRALS TO . CALL TO INQUIRE IF PT IS ACCEPTED AND TO ARRANGE TRANSPORT. PT AND SISTER ARE AWARE AND AGREEABLE. CHART COPY MADE. PT TO GO TO RM 224 THIS EVENING.
--- NOTE | 2018-05-18 18:27 | NUR ---
TRANSFERRED PT TO [facility] W/HER BELONGINGS AND MEAL. SHE REMEMBERED BEING THERE BEFORE AND ALTHOUGH ANXIOUS TO BEGIN WITH, WAS HAPPY TO BE IN A LARGER ROOM
[2018-05-18 19:43] VITALS: BP 157/107
--- NOTE | 2018-05-19 01:07 | NUR ---
Pt A/OX4,up ad hortencia without any problems. Pt denies pain,nausea on assessment but also states she doesn't want any medication if she has any pain or nausea. Hot water and pudding provided per request. BP a little elevated but pt reported is aware of it and will address it in AM. Pt voices no other concerns at this time and states she's comfortable. Resting quietly with eyes closed no distress noted. Will continue to monitor pt.
[2018-05-19 07:33] VITALS: BP 126/79
[2018-05-19 19:18] VITALS: BP 141/88
--- NOTE | 2018-05-19 20:20 | NUR ---
ASSUMED CARE OF PATIENT AT 0715, PATIENT ALERT AND ORIENTED X 4. PATIENT C/O CONSTIPATION THIS AM. PATIENT UP AD DRE. PATIENT HAS LEFT FOREARM IV IN PLACE, FLUSHED WITH NS AND REMIANS PATIENT. PATIENT HAVING PAIN BUT REFUSES PAIN MEDS AT THIS TIME. PATIENT C/O PAIN AND NAUSEA, ZOFRAN 4 MG IV GIVEN AND TRAMADOL 50 MG 1 TABLET GIVEN AROUND 1600. PATIENT HAS POOR APPETITE, DR RED HERE THIS AM, RECEIVED ORDER FOR SENNA, LACTULOSE, AND TRAMADOL AND ENSURE WILL ALL MEALS. WILL CONTINUE TO MONITOR.
--- NOTE | 2018-05-20 05:16 | NUR ---
PATIENT ALERT AND ORIENTED X4. UP ADLIB TO BSC. DENIES PAIN. COOPERATIVE WITH CARE. NO RESULTS DURING THE NIGHT FROM AM LACTULOSE. PATIENT SLEPT THROUGHOUT THE NIGHT. POSSIBLE D/C TO [facility] PENDING PT/OT EVALUATIONS. WILL MONITOR.
[2018-05-20 08:04] VITALS: BP 130/80
--- NOTE | 2018-05-20 17:48 | NUR ---
ASSUMED CARE AT 0700, SHIFT ASSESSMNET DONE, MEDS GIVEN, VSS. PATIENT HAS BEEN CONSTIPATED. MG CITRATE GIVEN THIS AM. ORDER RECEIVED FOR NOLBERTO'S ENEMA, PROVIDED THIS AFTERNOON. PATIENT HAD SUCCESS THIS AFTERNOON, HAD A MEDIUM HARD STOOL. INDICATES SHE IS FEELING MUCH BETTTER IN TERMS OF BLAOTING, NAUSEA. WILL CONTINUE TO ASSES AND ASSIST WITH ADLs NEEDED.
[2018-05-20 19:20] VITALS: BP 119/77
--- NOTE | 2018-05-21 05:02 | NUR ---
Pt A/OX4.Up ad hortencia without any problems voiced. Denies pain on assessment or nausea states once she had that med hard formed BM's yesterday she has been feeling better and actually ate a meal. Snacks and water provided per request. Voiding per BSC without any difficulties voiced. Resting quietly eyes closed at this time.Will continue to monitor pt.
[2018-05-21 08:15] LABS: CALCIUM 8.7 mg/dL (8.5-10.1); CREATININE 0.4 mg/dL (0.6-1.0); POTASSIUM 4.3 mmol/L (3.5-5.1)
--- NOTE | 2018-05-21 08:25 | NUR ---
LONG VISIT WITH PATIENT THIS MORNING, REVIEW OF CHART AND PHYSICAL THERAPY EVAL (PT D/C PATIENT AFTER EVAL). PATIENT IS VERY PLEASANT, SOMEWHAT ANXIOUS. SHE HAS BEEN GETTING UP INDEPENDENTLY IN HER ROOM TOILETING, SHOWERING, GATHERING BATHING ITEMS, AND CHANGING CLOTHES NEEDED. PT DOES NOT NEEDE ANY ASSIST IN THESE AREAS. PT DOES NOT BELIEVE SHE NEEDS ASSISTANCE IN THESE BASIC ADL'S. PT DOES NOT NEED AN OT ACUTE EVAL. OT RECOMMENDS D/C HOME WITH HOME HEALTH FOR HOME SAFETY CHECK AND ASSIST FOR A WEEK OR TWO IN GETTING HER GROCERIES. PT IS NOT CONCERNED ABOUT HER ABILITY TO PREPARE THE FOODS SHE NEEDS TO EAT.
[2018-05-21 08:50] VITALS: BP 141/94
[2018-05-21 13:42] VITALS: BP 142/83
--- NOTE | 2018-05-21 13:59 | NUR ---
patient too high level for skilled at [facility]. Sp with patient who is agreeable to home with HH. If dc over holiday call [phone] and alert of discharge. Fax orders to [phone]. Can transport patient home, call [facility] [phone].
[2018-05-21 18:51] VITALS: BP 155/106
--- NOTE | 2018-05-21 19:53 | NUR ---
ASSUMED CARE OF PATIENT AT 0715, PATIENT ALERT AND ORIENTED X 4. PATIENT UP AD DRE IN ROOM. PATIENT DENIES PAIN THIS SHIFT. PATIENT C/O NAUSEA, ZOFRAN 4MG IV GIVEN, WITH COMPLETE RESULTS. PATIENT HAS LEFT FOREARM IV IN PLACE, FLUSHED WITH NS AND REMAINS PATENT. NO BOWEL MOVEMENT TODAY. PATIENT TOLERATED BREAKFAST AND DINNER W/O NAUSEA COMPLIANT. WILL CONTINUE TO MONITOR.
--- NOTE | 2018-05-22 05:44 | NUR ---
PATIENT ALERT AND ORIENTED X4. C/O PAIN IN ABD BUT REFUSED PAIN MED. ABD SOFT BUT VERY DISTENDED. HAS POOR APPITITE, IV IN LFA PATENT. SLEPT OFF AND ON DURING NIGHT.
[2018-05-22 07:35] LABS: CALCIUM 8.7 mg/dL (8.5-10.1); CREATININE 0.4 mg/dL (0.6-1.0); POTASSIUM 4.7 mmol/L (3.5-5.1)
[2018-05-22 08:00] VITALS: BP 140/93
--- NOTE | 2018-05-22 17:08 | NUR ---
ASSUMED PT CARE AT 0700H. PT HAS NO S/S OF DISTRESS. PT A&O X4. PT STATES ABD PAIN. PT STATES TOLERABLE PAIN. PT CONCERN OF ABD SWOLLEN ON R LOWER QUADRANT. PT SPOKE TO PHYSICIAN. NEW ORDERS WERE RECEIVED AND ACKNOWLEDGED. PT STATES SOME RELIEF. PT ABLE TO AMBULATE TO BATHROOM. PT ABLE TO USE BEDSIDE COMMODE. PT CURRENTL FELT NAUSEA AT THIS TIME. PT TOLERATED PRN MED. PT STATES DRINKING 2 CUPS OF HOT WATER SOOTH HER ABD TO TOLERATE DIET. PT L FOREARM IV INFILTRATED. PT CURRENTLY HAS NEW R HAND IV THAT'S C/D/I. PT CALL LIGHT WITHIN REACH AND PERSONAL BELONGINGS. PT CONTINUES TO BE MONITORED FOR SAFETY.
[2018-05-22 20:24] VITALS: BP 118/81
[2018-05-23 08:30] VITALS: BP 145/86
--- NOTE | 2018-05-23 14:25 | NUR ---
PATIENT CARE WAS ASSUMED AT 0715.PATIENT IS ALERT AND ORIENTED.PATIENT HAS IV INTACT AND SALINE LOCKED.PATIENT HAS NO COMPLAINS OF PAIN AT THIS TIME.PATIENT IS RESTING IN BED.PT IS ABLE TO AMBULATE ON HER OWN.CALL LIGHT, PHONE, AND PERSONAL BELONGINGS ARE WITHIN PLACE.WILL CONTINUE TO MONITOR PATIENT.
[2018-05-23 19:51] VITALS: BP 128/82
--- NOTE | 2018-05-24 04:24 | NUR ---
PATIENT ALERT AND ORIENTED X4. UP IN ROOM AD DRE. DENIES N/V. C/O PRESSURE IN ABD BUT REFUSES ANYTHING FOR IT. SCHEDULED TO GO HOME IN THE MORNING. SLEPT MOST OF NIGHT,
[2018-05-24] MEDS ORDERED: MIRALAX17 GM PO (11:06)
[2018-05-24] MEDS ORDERED: SENNA PLUS TAB1 EACH PO (11:06)
[2018-05-24] MEDS ORDERED: CARAFATE 11 GM/10 M1 PO (11:06)
[2018-05-24] MEDS ORDERED: BENTYL 10 MG CA10 M1 PO (11:06)
[2018-05-24] MEDS ORDERED: ZOLOFT25 MG PO (11:06)
[2018-05-24] MEDS ORDERED: PEPCID20 MG PO (11:06)
[2018-05-24] MEDS ORDERED: TRAMADOL 50 MG50 MG PO (11:06)
--- NOTE | 2018-05-24 14:49 | NUR ---
PATIENT WITH NEED FOR TRANSPORT HOME. VERIFIED ADDRESS AND ARRANGED WC VAN FROM [facility] FOR TRANSPORT HOME. PATIENT TO HAVE CARE [facility] TO FOLLOW AT HOME.
--- NOTE | 2018-05-24 15:25 | NUR ---
ASSUMED CARE OF PATIENT AT 0715, PATIENT ALERT AND ORIENTED X 4. PAIENT UP AD DRE IN HER ROOM, AND WALKS IN HALLWAYS SOMETIMES. PATIENT DENIES PAIN AND NAUSEA TODAY. PATIENT STATES SHE FEELS BETTER TODAY. DR RED HERE THIS AM, PATIENT WILL DISCHARGE TO HOME WITH HOME HEALTH. TRANSPORT HERE AT 1430, ALL DISCHARGE PAPERWORK AND ALL PERSONAL BELONGINGS SENT WITH PATIENT. [facility] WILL TRANSPORT PATIENT HOME.
== END 2018-05-24 15:07 | disposition home health service (06) | DRG 390 ==
LOC: ER 21:37 → EROBS 05-14 01:36 → 3W 05-14 01:36 → 4W 05-14 01:36 → 3W 05-14 02:08 → 4W 05-15 22:40 → SICU 05-18 18:28
PROVIDERS: Emergency Medicine; Internal Medicine Geriatric Medicine; Surgery; ADMIT Internal Medicine
DX: K56.609 Unspecified intestinal obstruction, unspecified as to partial versus complete obstruction (principal); G89.29 Other chronic pain; R10.9 Unspecified abdominal pain; K59.09 Other constipation; F41.9 Anxiety disorder, unspecified; Z88.8 Allergy status to other drugs, medicaments and biological substances; Z87.81 Personal history of (healed) traumatic fracture; Z86.010 Personal history of colon polyps; Z85.060 Personal history of malignant carcinoid tumor of small intestine
CPT/HCPCS: 10047; 10779; 15002

== ENCOUNTER 2019-09-29 22:31 | Inpatient (IN) | payer OTHER ==
[~2019-09-29] VITALS: Ht 162.6 cm; Wt 32.8 kg
[~2019-09-29 22:31] MED LIST changes: +BENTYL 10 MG CA10 M1 PO; +CARAFATE 11 GM/10 M1 PO; +ENULOSE10 GM/15 M PO; +ONDANSETRON HCL4 M2 PO; +PEPCID20 MG PO; +REGLAN 10 MG TA10 MG PO; +SENNA PLUS TAB1 EACH PO; +TRAMADOL 50 MG50 MG PO; +ZOLOFT25 MG PO
[2019-09-29 22:39] VITALS: BP 145/87
[2019-09-29 23:58] LABS: ABSOLUTE NEUTROPHILS 9.6 thou/uL (1.4-8.2); BASOPHILS 0.2 % (0.0-2.0); EOSINOPHILS 0.1 % (0.0-3.0); HEMATOCRIT 39.5 % (37.0-47.0); HEMOGLOBIN 13.4 gm/dL (12.0-15.0); LYMPHOCYTES 6.7 % (24.0-44.0); MCH 30.2 pg (26.0-34.0); MCV 88.8 fL (80.0-100.0); MONOCYTES 5.4 % (1.0-8.0); PLATELET COUNT 225 thou/uL (150-400); POLYS 87.6 % (36.0-66.0); RBC 4.44 mil/uL (4.20-5.00); RDW 15.3 % (10.5-14.5); WBC 10.9 thou/uL (4.0-11.0)
[2019-09-30] VITALS (9 sets, daily range): BP systolic 113–142; BP diastolic 65–86
[2019-09-30 00:05] LABS: CALCIUM 8.8 mg/dL (8.5-10.1); CREATININE 0.5 mg/dL (0.6-1.0); POTASSIUM 3.8 mmol/L (3.5-5.1)
[2019-09-30 00:09] LABS: APTT 26.4 Seconds (24.5-32.8); INR 1.1; PROTIME 11.3 Seconds (9.3-11.4)
[2019-09-30] MEDS ORDERED: NOHOMEMEDICATIONS (00:22)
--- NOTE | 2019-09-30 00:51 | NUR ---
I SPOKE TO HER SISTER HEIKE. UPDATED HER ON CONDITION, PLAN FOR SURGERY IN THE MORNING. PATIENT ABLE TO SIGN CONSENTS HERSELF.
[2019-09-30 06:27] LABS: CREATININE 0.5 mg/dL (0.6-1.0); POTASSIUM 3.4 mmol/L (3.5-5.1)
--- NOTE | 2019-09-30 06:47 | NUR ---
PT WAS ADMITTED TO THE UNIT FROM THE ER IN A STABLE CONDITION.PT C/O PAIN ON HER L HIP,MANAGED WITH MED.ADMISSION HX,EDUCATION AND ASSESSMENT COMPLETED.TAVERAS CATH INSERTED,YELLOW URINE NOTED.PT RESTING ON HER BED AT THIS TIME.FALL PRECAUTIONS IN PLACE,CALL LIGHT WITHIN REACH.
--- NOTE | 2019-09-30 10:30 | NUR ---
chart review. called pt room no answer. possible having surgery today for hip fx. will cont following as needed for dc needs. noted per chart. pt had report fall at home. she lives alone in apartment. has walker in past. noted [facility] past. will cont following as needed for dc needs.
--- NOTE | 2019-09-30 14:00 | NUR ---
ASSUMED CARE OF THE PT AT 0700. PT WAS NPO ALL NIGHT AND HAD SX THIS AM, RETURNED FROM SX WITH 3.0L NC O2, KNEE HIGH FRANCESCA HOSE, SCD'S AND ICE PACK ON SURGICAL SITE. PAIN CONTROLLED WITH PAIN MEDS. PT REQ TO KEEP SOCKS ON WHILE FRANCESCA HOSE ARE IN PLACE. PTS SODIUM IS LOW, SEE CHART. TAVERAS INTACT. L FOREARM IV DRY AND INTACT. SPOKE WITH PTS SISTER TU POST SX. WILL ADVANCE DIET TOLERATED. FALL PRECAUTIONS IN PLACE, BED IN THE LOWEST POSITION AND CALL LIGHT IS WITHIN REACH. WILL CONTINUE TO MONITOR THE PT.
--- NOTE | 2019-10-01 03:07 | NUR ---
RECIEVED CARE OF THIS PATIENT AT 1900. PATIENT ALERT AND ORIENTED X4 BUT IS CONFUSED AT TIMES AND FORGETFUL. VERY ANXIOUS. C/O PAIN BUT REFUSES PAIN MED. TAVERAS PATENT OF YELLOW URINE. DRESSING ON L HIP D/I. IV IN LFA PATENT WITH FLUIDS INFUSING. C/O NAUSEA, REFUSED MEDS, STATED THAT THE WATER AND JUICE SHE HAD WAS HELPING. FRANCESCA'S AND SCD'S ON. O2 AT 3L/NC. SLEPT OFF AND ON DURING NIGHT. CALLS OUT FREQUENTLY.
[2019-10-01 03:50] VITALS: BP 116/81
[2019-10-01 09:08] VITALS: BP 100/62
--- NOTE | 2019-10-01 10:50 | NUR ---
ASSUMED CARE AT 0700. PT ALERT AND ORIENTED. VSSA/RA. CHANGED DIET THIS AM, ENCOURAGE TO EAT OR DRINK A SUPPLEMENT. TAVERAS IN PLACE. NO BM. PIV INFUSING WITHOUT COMPLICATIONS. PRN MEDS GIVEN ORDERED. DRSSING TO HIP IS C/D/I. WILL CONTINUE TO MONITOR
[2019-10-01 11:27] LABS: HEMATOCRIT 35.6 % (37.0-47.0); MCH 30.3 pg (26.0-34.0); MCHC 33.7 g/dL (28.0-37.0); RBC 3.95 mil/uL (4.20-5.00); RDW 15.1 % (10.5-14.5)
[2019-10-01 11:46] LABS: CALCIUM 8.1 mg/dL (8.5-10.1); CREATININE 0.4 mg/dL (0.6-1.0); MAGNESIUM 1.7 mg/dL (1.8-2.4); POTASSIUM 3.4 mmol/L (3.5-5.1)
--- NOTE | 2019-10-01 12:25 | O ---
[facility] [place] [address] OPERATIVE REPORT Name: DAVE ARIZA Room #: 437-P ADM IN M.R.#: [id number] Admission: 09/29/19 Attend Phys: Harry Floyd MD Discharge: Date of : 48 Report #: [id number] THIS REPORT FOR: cc: Nishant Haji MD,Pa Best MD, MD ~ CC: Nishant Floyd DATE OF SERVICE: 09/30/2019 PREOPERATIVE DIAGNOSIS: Fracture, left proximal femur, intertrochanteric region. POSTOPERATIVE DIAGNOSIS: Fracture, left proximal femur, intertrochanteric region. PROCEDURE: Open reduction internal fixation of left proximal femur fracture with antegrade intramedullary TFN nail fixation. SURGEON: Pa Gregg MD INDICATIONS: This very frail, somewhat cachectic 69-year-old female has a history of cancer and previous hip injury. Her last fracture was a greater trochanter fracture about 10 months ago which was managed nonsurgically and she did well. Despite her age and very frail state, she remains fully independent living in her own apartment with some assistance from her sister. She fell again yesterday with a new injury to the left hip involving a displaced intertrochanteric fracture. We discussed treatment options and elected to go ahead with surgical repair. DESCRIPTION OF PROCEDURE: The patient was taken to the operating room where she was placed under general anesthesia. Prophylactic intravenous antibiotics were administered. She was positioned on the fracture table with gentle longitudinal traction and slight rotation which resulted in excellent alignment of the left proximal femur fracture. The lateral aspect of the left hip and thigh were meticulously prepped and draped. C-arm was used to visualize the fracture. A small skin incision was made just proximal to the greater trochanter and a guidewire passed through the trochanter and down the canal. This was opened with a small reamer. A Synthes short TFN nail was utilized using a 10 mm diameter nail. This was advanced to an appropriate level. A lateral guidewire was then placed up into the low femoral neck. It appeared to be in good position when viewed on C-arm. An 85 mm length helical blade was inserted advancing this to about 1 cm below the subcortical bone at the femoral head. It seated nicely and appeared to be secure. The proximal interlock was locked down securely. The outrigger guide was repositioned and the distal interlocking [facility] [address] [place] [address] OPERATIVE REPORT Name: DAVE ARIZA Room #: 437-P [facility] IN [facility]#: [id number] Admission: 09/29/19 Attend Phys: Harry Floyd MD Discharge: Date of : 48 Report #: [id number] screw was placed. This also seated nicely and appeared to be secure. C-arm views in both AP and lateral views demonstrated satisfactory alignment of the fracture and good position of the fixation device. The 3 small incisions were then irrigated and closed using 2-0 Monocryl and angeles in the skin. A sterile dressing was applied. The patient was awakened and returned to the recovery room in good condition. <ELECTRONICALLY SIGNED> By: Pa Gregg MD 10/01/19 1225 1227 1238 Pa Gregg MD /nt
--- NOTE | 2019-10-01 12:25 | HC ---
[facility] [place] [address] CONSULTATION Name: DAVE ARIZA Room #: 437-P ADM IN M.R.#: [id number] Admission: 09/29/19 Attend Phys: Harry Floyd MD Discharge: Date of : 48 Report #: [id number] THIS REPORT FOR: cc: Nishant Haji MD,Pa Best MD, MD ~ CC: Nishant Floyd DATE OF SERVICE: 09/30/2019 CHIEF COMPLAINT: Left proximal femur fracture. HISTORY OF PRESENT ILLNESS: This very frail 69-year-old female has a history of GI cancer and has been treated surgically, but with significant ongoing symptoms and general medical problems. She had a fall 10 months ago resulting in a minor greater trochanter fracture at the left proximal femur. At that time, it did not seem to involve the intertrochanteric region or femoral neck and nonsurgical management was selected by the patient. She also had a left distal radius fracture, which was also treated nonsurgically. Despite her age and frail state with other significant comorbidity issues, she has remained functionally independent and lives in her own apartment with some assistance from her sister. She was functioning reasonably well and then fell again yesterday with new injuries involving the left hip, now x-rays confirm a displaced unstable intertrochanteric fracture. She has no other apparent injuries. She has not had any other significant recent new medical issues. She has not been febrile. She has not had any pulmonary symptoms. No any other symptoms, which would suggest a possible COVID virus infection. She has apparently been fairly well self-isolated as she lives alone in own apartment with some assistance from her visiting sister. Upon my evaluation, she is alert and oriented. She has a good understanding of the situation and her injury and treatment options. She denies any areas of injury aside from the left hip. She demonstrates good movement of both upper extremities. She has moderate chronic deformity of the left distal radius consistent with her old distal radius fracture, which seems to be stable and well healed. She has good movement of the right lower extremity at the hip, knee and ankle without discomfort or deformity. The left lower extremity is slightly shortened and slightly rotated consistent with a proximal femur fracture. She notes discomfort with any attempted movement about the left hip. There is no obvious bruising or swelling. She is quite slender weighing only about 70 pounds. There is no apparent bruising or swelling and the overlying skin seems to be intact. The left distal femur, knee and lower leg, [place] [address] CONSULTATION Name: DAVE ARIZA Room #: 437-P [facility] IN ..#: [id number] Admission: 09/29/19 Attend Phys: Harry Floyd MD Discharge: Date of : 48 Report #: [id number] appeared to be normal. X-rays of the left hip reveal a fracture in the intertrochanteric region with some varus malalignment and rotational change. IMPRESSION: I have discussed at some length with the patient the new injury and further treatment options, although she still reluctant to consider surgery given her chronic diagnosis of cancer and her age and frail state. She is also concerned with the current viral epidemic. Nevertheless, she understands that the current fracture is now displaced and unstable and probably will not allow weightbearing or ambulation or return to her own home, unless we can fix this with a surgical repair. Therefore, she is quite anxious to go ahead with surgical repair despite the obvious risks and problems. She is still hoping that she can return to her own apartment with some limited assistance from her sister. She understands she will probably need another 2-3 week stay in an extended care facility to regain strength and balance, although she is hoping she might even be able to manage this at home with some visiting therapy and assistance. We will proceed with fixation of her left proximal femur fracture using a TFN antegrade femoral nail device. At this time, we do not yet have COVID testing, but her history and current presentation would not be suggestive of COVID infection. Nevertheless, we will continue appropriate precautions during her procedure and her postoperative recovery. <ELECTRONICALLY SIGNED> By: Pa Gregg MD 10/01/19 1225 1059 1423 Pa Gregg MD /nt
--- NOTE | 2019-10-01 13:50 | NUR ---
[facility] INDICATED THEY MIGHT BE ABLE TO ASSESS FOR POSSIBLE POST ACUTE CARE STAY. CM SPOKE WITH PT AND SHE IS VERY INTERESTED IN ASSESSMENT FOR POSSIBLE ADMISSION. PT INDICATED SHE WOULD ONLY CONSIDER GOING TO [facility] OR HOME WITH HH ONCE MEDICALLY STABLE. CM NOTIFIED [facility] LIAISON THEY ARE TO ASSESS. CM TO FOLLOW INDICATED WITH DC PLANNING.
--- NOTE | 2019-10-01 15:38 | NUR ---
[facility] INDICATED THAT THEY ARE ABLE TO ACCEPT PT ONCE MEDICALLY STALBE. HOSPITALIST AND PT ARE AWARE AND AGREEABLE. CM TO FOLLOW INDICATED WITH DC PLANNING.
[2019-10-01 16:32] VITALS: BP 127/72
[2019-10-01 19:50] VITALS: BP 110/72
[2019-10-02 03:40] VITALS: BP 137/81
--- NOTE | 2019-10-02 04:00 | NUR ---
ALERT AND ORIENTED. DID NOT REQUIRE ANY PAIN MEDS THRO NOC. ATVERAS WITH ADEQUATE OUTPUT. DRINKING WARM WATER AND TAKES APPLE SAUCE. AFEBRILE. DRSG TO L HIP C/D/I.CALL APPROPRIATELY.
[2019-10-02 05:50] LABS: HEMATOCRIT 31.5 % (37.0-47.0); HEMOGLOBIN 10.8 gm/dL (12.0-15.0); MCH 30.8 pg (26.0-34.0); MCHC 34.3 g/dL (28.0-37.0); MCV 89.7 fL (80.0-100.0); RBC 3.52 mil/uL (4.20-5.00); RDW 15.2 % (10.5-14.5); WBC 5.1 thou/uL (4.0-11.0)
[2019-10-02 06:02] LABS: CALCIUM 7.4 mg/dL (8.5-10.1); CREATININE 0.3 mg/dL (0.6-1.0); POTASSIUM 3.6 mmol/L (3.5-5.1)
--- NOTE | 2019-10-02 07:45 | NUR ---
PT REQUIRES Q2HR TURN. LLE WITH REDNESS AND SWELLING. GIVEN NORCO FOR PAIN.TMAX OF 100.3, TYLENOL GIVEN.
[2019-10-02 08:15] VITALS: BP 141/84
[2019-10-02] MEDS ORDERED: NORCO 5-325 TA1 EAC1 PO (08:27)
[2019-10-02] MEDS ORDERED: SENNA-TIME S T1 EACH PO (08:28)
[2019-10-02] MEDS ORDERED: MIRALAX17 GM PO (08:28)
[2019-10-02] MEDS ORDERED: ENOXAPARIN30 MG/0.1 SUBQ (08:28)
[2019-10-02] MEDS ORDERED: TYLENOL325 MG PO (08:28)
[2019-10-02 09:30] VITALS: BP 141/84
--- NOTE | 2019-10-02 12:32 | NUR ---
PT CARE ASSUMED AT 0700. A&Ox4. PT IS VERY ANXIOUS AND TEARFUL ABOUT GOING TO REHAB BECAUSE OF THE CHANGE IN ENVIRONMENT. KNEE HIGH TEDHOSES. SCD'S IN PLACE. PT IS VERY CONCERNED ABOUT NOT HAVING A BM IN THE LAST TWO DAYS BUT DECLINED THE MIRALAX AND ONLY WANTED HER SENNA. TAVERAS WAS TAKEN OUT TODAY AND PT HAS BEEN URINATING. 20 LB. WEIGHTBARRING ON THE L. LEG. ICE PACK. IV TAKEN OUT AND REPORT CALLED TO SCOUT DON. PT TRANSFERRING TO RM.516. FAMILY CALLED AND UPDATED. FALL PROTOCOLL IN PLACE. PT USING BEDSIDE COMMODE AND UP WITH GATEBELT AND A WALKER. WILL CONTINUE TO MONITOR UNTIL TRANSFERRING. TYLENOL GIVEN FOR PAIN. PAIN RESOLVED
--- NOTE | 2019-10-02 13:45 | NUR ---
CARE TEAM INDICATED THAT PT IS MEDICALLY STABLE TO GO TO [facility] THIS DAY. PT IS AWARE AND AGREEABLE. NO OTHER CM INTERVENTION INDICATED. CASE CLOSED.
--- NOTE | 2019-10-03 11:07 | HC ---
[facility] [place] [address] CONSULTATION Name: DAVE ARIZA Room #: 437-P [facility] IN M.R.#: [id number] Admission: 09/29/19 Attend Phys: Harry Floyd MD Discharge: 10/02/19 Date of : 48 Report #: [id number] THIS REPORT FOR: cc: Nishant Haji MD,Servando Pascual MD, MD ~ CC: Nishant Floyd DATE OF SERVICE: 09/30/2019 REASON FOR CONSULTATION: Left hip fracture. HISTORY OF PRESENT ILLNESS: The patient is a 69-year-old female who fell while at home with complaint of left hip pain. She was brought to the Emergency Room, found to have a displaced intertrochanteric hip fracture. She does have a history of left hip fracture about a year ago, treated nonoperatively by my partner, Dr. Gregg. She has a history of carcinoid tumor to the small intestine. She does live alone at home and is really anxious to get out of her apartment. PAST MEDICAL HISTORY: Abdominal pain, carcinoid tumor, compression fracture of thoracic vertebra, constipation, IBS, acute hip fracture, small bowel mass, small bowel obstruction. ALLERGIES: Include STEROIDS. CURRENT MEDICATIONS: Have been reviewed on the chart. PHYSICAL EXAMINATION: GENERAL: Very frail-appearing, malnourished female in no acute distress. She is alert and oriented. EXTREMITIES: Left lower extremity shows her to have pain with range of motion of the left hip. NEUROLOGIC: She is neurologically intact distally. SKIN: Her skin is intact. X-RAY EXAMINATION: AP pelvis and AP, lateral of left hip showed to have a displaced left intertrochanteric hip fracture. ASSESSMENT: Left intertrochanteric hip fracture. PLAN: Given that her fracture is nondisplaced, I am recommending treatment with an IM nail. I have discussed this case with my partner, Dr. Gregg and he is planning to do hip surgery this morning around 10:30 a.m. Risks, benefits, alternatives, complications were discussed and she is understanding and wished [address] [address] CONSULTATION Name: DAVE ARIZA Room #: 437-P [facility] IN M.R.#: [id number] Admission: 09/29/19 Attend Phys: Harry Floyd MD Discharge: 10/02/19 Date of : 48 Report #: [id number] to proceed. Thank you for allowing us to participate in the care of the patient. <ELECTRONICALLY SIGNED> By: Servando Ryan MD 10/03/19 1107 0852 1022 Sevrando Ryan MD /nt
== END 2019-10-02 13:19 | DRG 480 ==
LOC: ER 22:31 → 4S 23:55 → EROBS 23:55 → 4S 09-30 00:46
PROVIDERS: Emergency Medicine; Nurse Practitioner Family; ADMIT Internal Medicine
PROC: 0QS706Z Reposition Left Upper Femur with Intramedullary Internal Fixation Device, Open Approach (ICD-10-PCS; principal; 2019-09-30)
DX: S72.142A Displaced intertrochanteric fracture of left femur, initial encounter for closed fracture (principal); E43 Unspecified severe protein-calorie malnutrition; E87.1 Hypo-osmolality and hyponatremia; Z68.1 Body mass index [BMI] 19.9 or less, adult; E87.6 Hypokalemia; R63.0 Anorexia; W18.39XA Other fall on same level, initial encounter; K58.9 Irritable bowel syndrome, unspecified; F41.9 Anxiety disorder, unspecified; K59.00 Constipation, unspecified; G47.00 Insomnia, unspecified; M81.0 Age-related osteoporosis without current pathological fracture; E83.42 Hypomagnesemia; E87.8 Other disorders of electrolyte and fluid balance, not elsewhere classified; Y93.89 Activity, other specified; Y92.89 Other specified places as the place of occurrence of the external cause; Y99.8 Other external cause status; Z87.311 Personal history of (healed) other pathological fracture; Z79.899 Other long term (current) drug therapy; Z88.8 Allergy status to other drugs, medicaments and biological substances; Z85.068 Personal history of other malignant neoplasm of small intestine
CPT/HCPCS: 10195; 50010; 50101; 50133; 50386; 50635; 51412; 51538; 51817; 52304; 56525; 57092; 5736; 57901; 62110; 62900; 70005

== ENCOUNTER 2019-10-02 08:08 | Inpatient (IN) | payer OTHER ==
[~2019-10-02] VITALS: Ht 162.6 cm; Wt 36.3 kg
--- NOTE | ~2019-10-02 | PLAN ---
[facility] [place] [address] REHAB UNIT PLAN OF CARE Name: DAVE ARIZA Room #: 516-1 ADM IN M.R.#: [id number] Admission: 10/02/19 Attend Phys: Pa Godwin MD Discharge: Date of : 48 Report #: [id number] THIS REPORT FOR: //name// CC: Nishant Godwin DATE OF SERVICE: 10/04/2019 PROGRESS NOTE/OVERALL PLAN OF CARE SUBJECTIVE: The patient is seen back today in followup. She was pleasant, alert, appropriate. Excellent historian. Physical therapy has been in contact with Dr. Gregg and he is allowing the patient to do some weightbearing as tolerated. Transfers are contact guard assistance with gait 6 feet contact guard assistance with a front-wheeled walker. In occupational therapy, upper body dressing has been supervision with lower body min assist. Her pain is well controlled with Tylenol. ASSESSMENT: 1. Left hip fracture, status post open reduction and internal fixation, gentle weightbearing as tolerated. 2. Electrolyte abnormalities. 3. Severe protein-calorie malnutrition. 4. Osteoporosis. 5. Prior history of a lumbar fracture, status post kyphoplasty. 6. Chronic constipation. PLAN: From an overall plan of care perspective, this is based on the preadmission screen, post-admission physician evaluation and information garnered from therapy assessments. 1. Estimated length of stay is probably at least 7-10 days and likely longer depending upon how she does. 2. Medical prognosis is reasonably good. 3. Anticipated interventions includes the interdisciplinary acute inpatient rehabilitation program. 4. Anticipated functional outcomes would be for the patient to become modified independent with transfers, mobility and ADLs at a walker level. 5. Discharge destination would be back to the home setting. She does have involved family including a sister and [id number]. 6. Expected therapy by discipline includes PT and OT 1-1/2 hours per day each five days a week throughout the duration of the acute inpatient rehabilitation stay. By: 1428 0041 Pa Godwin MD /nt
--- NOTE | ~2019-10-02 | H ---
[facility] [place] [address] HISTORY AND PHYSICAL Name: DAVE ARIZA Room #: 516-1 ADM IN M.R.#: [id number] Admission: 10/02/19 Attend Phys: Pa Godwin MD Discharge: Date of : 48 Report #: [id number] THIS REPORT FOR: cc: Nishant Haji MD,Nishant Godwin,Pa Ansari MD ~ CC: Nishant Godwin DATE OF SERVICE: 10/02/2019 HISTORY AND PHYSICAL AND POST-ADMISSION PHYSICIAN EVALUATION HISTORY OF PRESENT ILLNESS: The patient is a 69-year-old white female who was originally admitted to [facility] on 09/29/2019 after having a mechanical fall at home, causing severe left hip pain. She was found on x-ray to have a left proximal femur, intertrochanteric region fracture. She is noted to have a history of a left hip fracture 1 year ago, treated conservatively. She was seen by Orthopedics and underwent ORIF. She is allowed a 20-pound weightbearing restriction left lower extremity. She was having electrolyte abnormalities with a low magnesium and potassium being replaced. She has severe protein-calorie malnutrition. There is a diagnosis of anorexia with severe protein-calorie malnutrition. The patient has now been admitted for acute in-hospital inpatient rehabilitation. PAST MEDICAL HISTORY: Includes the prior left hip fracture without surgical intervention approximately a year ago. She has a history of carcinoid tumor of the small intestine, status post resection. She has had a lumbar fracture with kyphoplasty, history of electrolyte abnormalities with hyponatremia and hypochloremia thought due to poor p.o. intake. She has hypokalemia and hypomagnesemia, which were being replaced on acute. There was a note of anorexia with severe protein-calorie malnutrition and Dietary did see her on acute. MEDICATIONS: Please see the patient's current medication regimen. She is on Lovenox for DVT prophylaxis. ALLERGIES: INCLUDE CORTICOSTEROIDS CAUSING SOME DIZZINESS. SOCIAL HISTORY: The patient lives at home in an apartment alone, was independent with ADLs and IADLs. Besides shopping, which her sister does for her. She did not utilize any assistive device, but has a wheelchair and walker if needed. She was walking daily. No stairs. HABITS: No history of tobacco or alcohol abuse. [address] [address] HISTORY AND PHYSICAL Name: DAVE ARIZA Sandra Room #: 516-1 [facility] IN .R.#: [id number] Admission: 10/02/19 Attend Phys: Pa Godwin MD Discharge: Date of : 48 Report #: [id number] REVIEW OF SYSTEMS: She did not offer any complaints of headache, dizziness. No chest pain, shortness of breath, no abdominal discomfort. She has some left hip discomfort relatively mild as expected. PHYSICAL EXAMINATION: GENERAL: She is a very thin, cachectic, small statured 69-year-old white female in no obvious distress. VITAL SIGNS: Last recorded temperature 97.8, pulse 102, respirations 22 and blood pressure 142/92. She is 5 feet 4 inches and weighs 80 pounds. HEENT: Appeared to be benign. NEUROLOGIC: Cranial nerves are grossly intact. Facies are symmetric. She is an excellent historian, a little verbose. CHEST: Sounded clear to auscultation. CARDIOVASCULAR: Regular rate and rhythm. ABDOMEN: Bowel sounds positive, nontender. GENITOURINARY AND RECTAL: Deferred. EXTREMITIES: She has functional range of motion of both upper extremities. Strength is grade 4-/5. DTRs are trace to 1. Lower extremities functional range of motion of the right lower extremity without obvious focal weakness. Left lower extremity, she has the long left lateral hip dressing in place. There is no focal calf swelling. No obvious erythema or abnormalities noted around the hip dressing. She can dorsiflex the left ankle without focal weakness. Functionally, she does need some assistance with basic transfers and has been min assist trying to come to stand and has the weightbearing restrictions left lower extremity. ASSESSMENT: A 69-year-old white female with the following problem list: 1. Left hip fracture, status post open reduction and internal fixation. A 20 pounds weightbearing left lower extremity. 2. Multiple electrolyte abnormalities, being corrected/supplemented with hyponatremia, hypokalemia, hypomagnesemia and hypochloremia. 3. History of anorexia with severe protein-calorie malnutrition. Dietary has seen her. 4. History of a prior lumbar fracture, status post kyphoplasty. 5. History of carcinoid tumor, status post resection. 6. Deep venous thrombosis prophylaxis, on Lovenox. PLAN: The patient has been admitted for acute in-hospital inpatient rehabilitation. From a postadmission physician evaluation perspective, there are no relevant changes since the preadmission screening. Please see the above review of prior and current medical and functional conditions and comorbidities. Please see the patient's previous and current functional status. As far as risk of complications, the patient has the multiple medical comorbidities as noted above. The initial plan of care involves the interdisciplinary acute inpatient rehabilitation program. Measurable functional goals would be for the patient to become modified independent with transfers, mobility and ADLs within [address] [address] HISTORY AND PHYSICAL Name: DAVE ARIZA Room #: 516-1 ADM IN [facility].#: [id number] Admission: 10/02/19 Attend Phys: Pa Godwin MD Discharge: Date of : 48 Report #: [id number] her weightbearing precautions. Prognosis is reasonably good with estimated length of stay probably at least 10 days to 2 weeks. We will need to monitor how she does as far as her eating and may need to have Dietary see her again depending upon how she does. Potential barriers would include her overall thin body habitus and cachexia along with her weightbearing restrictions and her multiple medical comorbidities. The patient meets diagnostic criteria for an acute in-hospital inpatient rehabilitation stay. She meets the medical necessity criteria and we will have the successfactors consultant physicians continue to follow. She does have the tolerance for therapies and has appropriate discharge goals back to the home setting. By: 1104 1201 Pa Godwin MD /nt
[~2019-10-02 08:08] MED LIST changes: +NOHOMEMEDICATIONS
[2019-10-02] MEDS ORDERED: NORCO 5-325 TA1 EAC1 PO (08:27)
[2019-10-02] MEDS ORDERED: SENNA-TIME S T1 EACH PO (08:28)
[2019-10-02] MEDS ORDERED: ENOXAPARIN30 MG/0.1 SUBQ (08:28)
[2019-10-02] MEDS ORDERED: TYLENOL325 MG PO (08:28)
[2019-10-02] MEDS ORDERED: MIRALAX17 GM PO (08:28)
[2019-10-02 13:30] VITALS: BP 142/92
--- NOTE | 2019-10-02 14:42 | NUR ---
1415 ADMITTED TO ROOM 516. PATIENT IS ALERT AND ORIENTED X4. 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 LUNGS ARE CLEAR. ABD IS SOFT WITH BSX4. PATIENT ASSISTED UP WITH WALKER TO BSC TO VOID TANNER COLORED URINE. PATIENT HAS LEFT HIP DRESSING THAT IS DRY AND INTACT. NO EDEMA NOTED. FRANCESCA HOSE ON. FALL AND SAFETY PROTOCOLS IN PLACE. DENIES ANY PAIN AT THIS TIME. PT/OT/ST EVAL WILL BE DONE IN THE A.M.
[2019-10-02 20:00] VITALS: BP 140/98
--- NOTE | 2019-10-03 03:26 | NUR ---
ASSUMED CARE OF PT AT 1900HRS. PT AOX4 AND LETS NEEDS BE KNOWN. PT IS 1P ASSIST TO BSC. SURGICAL DRESSING IS C/D/I. PT REPORTED PAIN OF 8/10 BUT ONLY WANTED TO TAKE TYLENOL. PT REPORTS THAT SHE HAS FREQUENT CONSTIPATION AND TAKES SOFTENERS REGULARLY. PRN SOFTNER PROVIDED. LBM IS 09/29 PER PT. PT WAS ABLE TO GET COMFORTABLE AND SLEEP PART OF THE SHIFT. VSS AND NO S/S OF ACUTE DISTRESS. WILL CONTINUE TO MONITOR.
[2019-10-03 04:51] LABS: HEMATOCRIT 29.7 % (37.0-47.0); HEMOGLOBIN 10.3 gm/dL (12.0-15.0); MCH 30.9 pg (26.0-34.0); MCHC 34.7 g/dL (28.0-37.0); MCV 89.1 fL (80.0-100.0); RBC 3.34 mil/uL (4.20-5.00); RDW 15.7 % (10.5-14.5); WBC 4.6 thou/uL (4.0-11.0)
[2019-10-03 05:00] LABS: CALCIUM 7.7 mg/dL (8.5-10.1); CREATININE 0.3 mg/dL (0.6-1.0); MAGNESIUM 1.8 mg/dL (1.8-2.4); POTASSIUM 3.9 mmol/L (3.5-5.1)
[2019-10-03 08:00] VITALS: BP 155/103
--- NOTE | 2019-10-03 14:20 | NUR ---
cm tried calling pt in room x 2, no answer. chart review. pt cont to work with therapy. cm called spoke with her sister magalys via phone call. pt lives alone in apartment. has walker and cane. per her sister magalys reported " apartment is 2 blocks from us, she been to [facility] for rehab and kgw. she live on ground level. no stairs. he has hx of dancing, and is fit and active. has cell phone in bag she carries around. she manage own medication. cooks. has cane, walker and has 3 wheel chair if she needs use one. shower chair when bath. when cooks mostly on liquid diet rt aki. she will have some baby food and eggs. we will go to groceries store or errands together if needed"/ sister magalys. will cont following as needed for dc needs.
--- NOTE | 2019-10-03 17:12 | NUR ---
ASSUMED CARE AT 0700. PATIENT IS AELRT AND ORIENTED X4. PATIENT LEWIS'S, GETTERING FILAMENT MACHINE OPERATOR ARE EQUAL. LUNGS ARE CLEAR. ABD IS SOFT WITH BSX4. PATIENT HAS LEFT HIP DRESSING THAT IS DRY AND INTACT. PATIENT IS UP WITH MAX WT OF 20 LBS TO HER LEFT HIP TO THE BSC TO VOID TANNER COLORED URINE. PATIENT HAS NO IV ACCESS. UP IN W/C FOR MEALS. FALL AND SAFETY PROTOCOLS IN PLACE. C/O PAIN IN HER LEFT HIP. MEDICATED WITH PRN PAIN MED. CONTINUES TO PROGRESS SLOWLY TOWARDS D/C GOALS. WILL CONTINUE TO MONITER.
--- NOTE | 2019-10-03 17:15 | NUR ---
DR BLACKMON CALLED FOR WEIGHT BEARING STATUS AND DRESSING CHANGE INSTRUCTIONS. PATIENT IS NOW WEIGHT BREARING [place] AND DRESSING WAS CHANGED TODAY. PATIENT HAS CARISSA 2 AT THE TOP AND 4/3 MID THIGH LEVEL. [place] BANDAID APPLIEWD. PATIENT CAN SHOWER DAILY WITH O.T. WILL CONTINUE TO MONITER.
[2019-10-03 19:36] VITALS: BP 132/84
--- NOTE | 2019-10-04 02:31 | NUR ---
ASSUMED CARE AROUND 1900, PT A&O X 4, NO ACUTE DISTRESS NOTED. VSS, O2 ON RA. PT DENIED ANY PAIN OR DISCOMFORT DURING SHIFT. MEDS GIVEN PER ORDERS, TOLERATED WELL. WBAT TO LLE, DRESSING TO L HIP IN PLACE C/D/I. CONTINENT OF B&B USES BS, LAST BM 09/30/19. PT RESTING IN BED, CALL LIGHT WITHIN REACH, WILL CONTINUE TO MONITOR PER POC.
[2019-10-04 08:53] VITALS: BP 143/99
--- NOTE | 2019-10-04 09:20 | NUR ---
ASSUMED CARE AT 0700. REPORTS SHE DIDN'T SLEEP GOOD AND NEVER SLEEP GOOD. PT OK TO TRY MELATONIN TONIGHT. WILL LET TERESSA KNOW PT ALSO HAS HR 104 D/T ANXIETY. NOT ON ANY HEART MEDICATION MEDS. ENCOURAGED DEEP BREATHING AND RELAXATION TECHNIQUE.WILL CONTINUE TO MONITOR VS. VSS ON RA THIS AM. PATIENT IS ALERT AND ORIENTED X4. ABLE TO MAKE HER OWN NEEDS KNOWN, HAS FLAT AFFECT. REASSESSMENT PER CHART. LEFT HIP INCISIONS INTACT, NO REDNESS. OT GAVE PT'S SHOWER. RACHEL ASSESSED INCISIONS AND OK TO APPLY OPTIFOAM AND CHANGE VERY OTHER DAY. PATIENT MANAGER OF WAREHOUSE ARE EQUAL. LUNGS ARE CLEAR. ABD IS SOFT WITH BSX4. LAST BM WAS September, HYPOATIVE BM. MIRALAX GIVEN WITH WARM GRAPE JUICE AND ALL PRN PO LAXATIVE GIVEN. WILL CONTINUE TO MONITOR BM. RATES L HIP PAIN /10, PRN TYLENOL EXTRA STRENGTH SCHEDULE GIVEN THIS AM. ABB PAIN 7/10 D/T CONSTIATION. ENCOURAGE PT TO EAT. PT UP IN W/C FOR BREAKFAST ATE 85%. OT GAVE PT SHOWER THIS AM. FALL AND SAFETY PROTOCOLS IN PLACE. CONTINUES TO PROGRESS SLOWLY TOWARDS D/C GOALS. WILL CONTINUE TO MONITOR.
--- NOTE | 2019-10-05 02:11 | NUR ---
ASSUMED CARE ON 10/04/19 @ 1900, IN BED A&OX4, PLEASANT AFFECT NOTED. ABLE TO MAKE NEEDS KNOWN. STATUS POST LEFT HIP FX ORIF. UP WITH ASSIST, ON FALL PRECAUTIONS. HRRR, LUNGS CTA BREATH SOUNDS AUSCULTATED BILAT, CONTINENT OF B&B. USES BSC, LARGE HARD BM TODAY. ON MIRILAX BID. PROVIDED WARM WITH APPLE JUICE REQUESTED. REPORTS SLEEPS POORLY, PRN TYLENOL AND MELATONIN PROVIDED @ HS. PAIN IS IN L HIP AND ABDOMEN D/T HX CA SURGERY AND CONSTIPATION. DRESSING ON L HIP IS C/D/I. @ 0100 REQUESTED X2 ICE CREAM X2 MILK, PUDDING AND X2 HOT WATER AND CEREAL. ATE AND DRANK ALL THE FOOD PROVIDED. RETURNED TO SLEEP, BED ALARM SET, BED IN LOW POSITION WILL CONTINUE TO MONITOR Q 1 HOUR FOR PATIENT SAFETY.
[2019-10-05 08:30] VITALS: BP 164/100
--- NOTE | 2019-10-05 09:33 | NUR ---
ASSUMED CARE AT 0700. PATIENT IS ALERT AND ORIENTED X4. PATIENT LEWIS'S, MULTIM[employer] SERVICES COORDINATOR ARE EQUAL. LUNGS ARE CLEAR. ABD IS SOFT WITH BSX4. PATIENT HAS LEFT HIP DRESSING THAT IS CHANGED TO [place] BANDAID. CARISSA ARE DRY AND INTACT. UP TO THE CHAIR FOR MEALS. UP TO THE BSC TO VOID TANNER COLORED URINE. UP WITH ASSIST OF 1 STAFF AND GAIT BELT. FALL AND SAFETY PROTOCOLS IN PLACE. DENIES PAIN AT THIS TIME. CONTINUES TO PROGRESS SLOWLY TOWARDS D/C GOALS. PATIENT HAD SOME NAUSEA R/T HER CONSTIPATION. LEMON-SKAGWAY SODA GIVEN PER REQUEST. WILL CONTINUE TO [facility].
[2019-10-05 19:30] VITALS: BP 133/78
--- NOTE | 2019-10-05 23:39 | NUR ---
PT ALERT AND ORIENTED X 4. UP TO BSC WITH ASSIST X 1. 3 DRESSINGS TO LEFT HIP C/D/I. PT INCONT OF URINE IN LARGE AMT X 1. PT C/O HEADACHE AND NAUSEA AT HS. TYLENOL AND ZOFRAN GIVEN ORDERED. PT VERY ANXIOUS AND CALLS OUT FREQUENTLY FOR VARIOUS THINGS. REQUIRES GREAT DEAL OF EMOTIONAL SUPPORT. BED ALARM ON FOR SAFETY. PT HAS BEEN AWAKE ON AND OFF THROUGHOUT NIGHT.
[2019-10-06 08:00] VITALS: BP 157/92
--- NOTE | 2019-10-06 10:35 | NUR ---
ASSUMED CARE AT 0700. PATIENT IS ALERT AND ORIENTED, BUT VERY ANXIOUS. PATIENT LEWIS'S, MEDICAL BILLING INSTRUCTOR ARE EQUAL. LUNGS ARE CLEAR AND DEMINISHED. ABD IS SOFT WITH BSX4. UP TO THE BSC TO VOID ABMER COLORED URINE. UP IN THE CHAIR FOR BREAKFAST. LEFT HIP DRESSING IS DRY AND INTACT. FALL AND SAFETY PROTOCOLS IN PLACE. DENIES PAIN AT THIS TIME. WILL CONTINUE TO MONITER.
[2019-10-06 19:32] VITALS: BP 150/105
--- NOTE | 2019-10-07 02:42 | NUR ---
UP TO BSC WITH STANDBY ASSIST, CONCERNED ABOUT CONSTIPATION BUT REFUSED HS SEENEKOT. CURRENTLY HAS NAUSEA PARTLY RELIEVED WITH ZOFRAN ODT, SHE IS ALSO TAKING COLACE. DOES NOT WANT TO TAKE NORCO FOR HER HEADACHE, [place] BANDAID TO COVER DRY AND INTACT CARISSA.
[2019-10-07 08:10] VITALS: BP 146/104
--- NOTE | 2019-10-07 12:01 | NUR ---
ASSUMED CARE AT 0700. REPORTS SHE DIDN'T SLEEP GOOD, PT REQUESTS TO INCREASE MELATONIN TO 10MG. B/P 146/102. HR 100. DOCTOR SINGH AND TERESSA AWARES. NO B/P MEDS AT THIS MOMENT. WILL ASK TERESSA TO INCREASE PT'S MELATONIN TO 10MG. PT C/O ABD PAIN 10/10 D/T CONSTIPATION. LAXATIVES GIVEN SCHEDULED WITH WARM APPLE JUICE. PT IS VERY ANXIOUS. ENCOURAGED DEEP BREATHING AND RELAXATION TECHNIQUE.WILL CONTINUE TO MONITOR VS. PATIENT IS ALERT AND ORIENTED X4. ABLE TO MAKE HER OWN NEEDS KNOWN, HAS FLAT AFFECT. REASSESSMENT PER CHART. LEFT HIP INCISIONS INTACT, NO REDNESS. OT GAVE PT'S SHOWER. TEXA DRESSING APPLIED. RATES L HIP PAIN /10, WILL GIVE TYLENOL BEFORE NEXT THERAPY. ENCOURAGE PT TO EAT. PT CONCERNS ABOUT HER PRIOR KUB AND THINKS SHE OK TO HAVE COLOSTOMY TO HELP RELIEVES HER ABD PAIN. PT DID WELL WITH HER MORNING THERAPY AND UP IN WC TO EAT LUNCH AT THIS MOMENT. FALL AND SAFETY PROTOCOLS IN PLACE. CONTINUES TO PROGRESS SLOWLY TOWARDS D/C GOALS. WILL CONTINUE TO MONITOR.
[2019-10-07 20:00] VITALS: BP 161/99
[2019-10-08 08:30] VITALS: BP 161/93
--- NOTE | 2019-10-08 08:42 | NUR ---
PATIENT HAS HAD TWO SMALL SOFT FORMED BM OVERNIGHT WITH APPROX 6 VOIDS CONTINENTLY WITH SBA. BRIEF PERIOD OF NAUSEA QUELLED WITH ZOFRAN ODT. APPRECIATES TYLENOL FOR PAIN WITH PAIN 8-9 OUT OF 10 MOST OF THE NIGHT. LEFT HIP DRESSING DRY AND INTACT.
--- NOTE | 2019-10-08 11:15 | NUR ---
vendor form and hh list choice given to bedside nurse to give to pt and place on pt chart.
--- NOTE | 2019-10-08 12:20 | HC ---
[facility] [place] [address] CONSULTATION Name: DAVE ARIZA Room #: 516-1 ADM IN M.R.#: [id number] Admission: 10/02/19 Attend Phys: Pa Godwin MD Discharge: Date of : 46 Report #: [id number] THIS REPORT FOR: cc: Nishant Haji MD,Virgil Payne MD PhD ~ CC: Nishant Godwin NEUROBEHAVIORAL STATUS EXAMINATION CONTINUATION The patient lives alone and has no children. 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 TECHNIQUES UTILIZED: Clinical interview, review of medical records, staff consultation and behavioral observation, subtest and mini mental status exam 2 standard version. EXAMINATION FINDINGS: The patient was alert and cooperative with the assessment. She accurately described the reason for her admission in regard to having sustained a fall. She reports difficulty with eating and digestion that have led to her reluctance to consume food. She reported having an abdominal tumor that led to her problems with digestion and for the last 2 years has had much difficulty with eating. Her symptoms include sleep, anxiety and depression. However, she does not report herself as being depressed. She states that she does not want to be diagnosed with anxiety or depression. Appetite is poor and sleep is reduced. At this time, she describes being overwhelmed by her environment and having difficulty meeting expectations for therapy as well as expectations for eating. Performance on the MMSE 2 brief version was 13/16, which is a T score of 34 and percentile rank of 5. Difficulty with hearing is noted. Initial encoding of 3 items was 2/3. She was also 1/3 for immediate recall of 3 items after a brief time delay and distraction. The patient also was inaccurate in her report of current location in the hospital stating that she was on the 8th floor. The patient was unable to do serial sevens and was 0/5. Naming was satisfactory. The patient is presenting with an impairment in immediate recall and sustained concentration. Anxiety appears very high. She is lacking insight into her deficits in functioning as well as the importance of maintaining adequate nutrition. DIAGNOSTIC IMPRESSION: [facility] [address] [place] [address] CONSULTATION Name: DAVE ARIZA Sandra Room #: 516-1 [facility] IN [facility].#: [id number] Admission: 10/02/19 Attend Phys: Pa Godwin MD Discharge: Date of : 48 Report #: [id number] Neurocognitive disorder -- extent to be determined. Adjustment disorder with anxiety and depressed mood. RECOMMENDATIONS: The patient will likely benefit from the use of an antidepressant medication to assist with anxiety as well as stimulating appetite, e.g., Remeron. However, she is not wanting to perceive herself as requiring an antidepressant. Consider psychiatric consultation to assist in selection of medication. The use of relaxation techniques to assist in the management of anxiety through deep breathing may be of benefit. The patient is very much feeling out of control of her environment and worried that she could no return home. She is fearful of requiring a fpc or roasterman care placement. If independent living is not possible currently, then presenting options as opportunities to improve her abiltiy to return home may be less threatening. Thank you very much for allowing me to provide the consultation on this patient. <ELECTRONICALLY SIGNED> By: Virgil Tapia, PhD 10/08/19 1220 1616 15 Virgil Tapia, PhD /nt
--- NOTE | 2019-10-08 12:45 | HC ---
[facility] [place] [address] CONSULTATION Name: DAVE ARIZA Room #: 516-1 ADM IN M.R.#: [id number] Admission: 10/02/19 Attend Phys: Pa Godwin MD Discharge: Date of : 46 Report #: [id number] THIS REPORT FOR: cc: Nishant Haji MD, Christopher B. MD Deutch, Neal B. PhD ~ CC: Nishant Godwin DATE OF SERVICE: 10/05/2019 BEHAVIORAL STATUS EXAM ATTENDING PHYSICIAN: Pa Godwin MD STULL HEWER: Virgil Bob, PhD CLINICAL PRESENTATION: The patient is a 69-year-old white female initially admitted to [facility] after having a mechanical fall at her home, causing severe left hip pain. She was diagnosed with a left proximal femur intertrochanteric region fracture. Her history includes a left hip fracture about 1 year ago which was treated conservatively. On admission she also had electrolyte abnormalities and low magnesium and potassium. Severe protein-calorie malnutrition is also reported. There is a diagnosis of anorexia with severe malnutrition. The patient's assessment on admission to the rehab unit is a left hip fracture, status post open reduction and internal fixation with a 20-pound weightbearing left lower extremity limit, multiple electrolyte abnormalities, being supplemented for hyponatremia, hypokalemia, hypomagnesemia and hypochloremia, history of anorexia with severe protein-calorie malnutrition, history of prior lumbar fracture status post kyphoplasty, history of carcinoid tumor status post excision and deep venous thrombosis prophylaxis, on Lovenox. A complete description of her medical condition and history can be found in her medical record. Neuropsychological consultation was requested to provide assistance in the assessment of cognitive and emotional status and to provide recommendations and services. TECHNIQUES UTILIZED: Clinical interview, review of medical records, staff consultation and behavioral observation, subtest of the mini mental status exam 2 standard version. EXAMINATION FINDINGS: The patient was alert and partially cooperative with the assessment. She was very talkative and tangential. Anxiety appears very high. The patient reports having lived alone. [facility] [address] [place] [address] CONSULTATION Name: TYLORDAVE Sandra Room #: 516-1 [facility] IN ..#: [id number] Admission: 10/02/19 Attend Phys: Pa Godwin MD Discharge: Date of : 46 Report #: [id number] DICTATION ENDS HERE The dictation was interrupted. Please refer to the continuation of this dictation. Thank You, Virgil Tapia, PhD <ELECTRONICALLY SIGNED> By: Virgil Tapia, PhD 10/08/19 1245 1610 06 Virgil Tapia, PhD /nt
--- NOTE | 2019-10-08 15:53 | NUR ---
ASSUMED CARE AT 0700. REPORTS SHE SLEPT BETTER LSAT NIGHT. PT C/O ABD PAIN 10/ D/T CONSTIPATION. LAXATIVES GIVEN SCHEDULED WITH WARM APPLE JUICE. PT IS VERY ANXIOUS. ENCOURAGED DEEP BREATHING AND RELAXATION TECHNIQUE.WILL CONTINUE TO MONITOR VS. PATIENT IS ALERT AND ORIENTED X4. ABLE TO MAKE HER OWN NEEDS KNOWN, HAS FLAT AFFECT. REASSESSMENT PER CHART. LEFT HIP INCISIONS INTACT, NO REDNESS. OT GAVE PT'S SHOWER. TEXA DRESSING APPLIED. PT DID WELL WITH HER MORNING THERAPY. PT STARTS ON AMATIZIA TO HELP WITH CONSTIPATION WITH IBS. CONTINUE TO MONITOR BM. REASSESSMENT PER CHART. LAST BM WAS LAST NIGHT. LAXATIVES GAVE ORDERED WITH MORNING MEDS. PT DONE WITH THERAPY NOW. REQUESTS FOR PRN SUPPOSITORY. MED GIVEN. PT RESTING IN BED. ICE PACK APPLIED ON LEFT HIP. FALL AND SAFETY PROTOCOLS IN PLACE. CONTINUES TO PROGRESS SLOWLY TOWARDS D/C GOALS. WILL CONTINUE TO MONITOR.
--- NOTE | 2019-10-08 16:55 | NUR ---
FAXED REFERRAL TO [facility] RECEIVED CONFIRMATION AND SPOKE WITH DANIEL IN INTAKE SHE WILL REVIEW. DP TO FOLLOW.
[2019-10-08 19:44] VITALS: BP 139/91
--- NOTE | 2019-10-09 02:09 | NUR ---
ASSUMED CARE OF PT AT 1930. PT IS A&OX4. IS ON ROOM AIR. REPORTS ABD PAIN THAT IS BEING MANAGED WITH MEDS & THERAPUETIC TECHNIQUES. PT IS STABLE. IS UP WITH 1, ASSIST, GB, PIVOT TO BSC. FALL PRECAUTIONS & HOURLY ROUNDING MAINTAINED. DRSGS TO LEFT HIP C/D/I. HIP PRECAUTIONS MAINTAINED. LABS & VITALS REVIEWED. PT IS CURRENTLY ASLEEP. CALL LIGHT WITHIN REACH. WILL CONTINUE TO MONITOR.
[2019-10-09 06:43] LABS: ABSOLUTE NEUTROPHILS 3.3 thou/uL (1.4-8.2); EOSINOPHILS 1.8 % (0.0-3.0); HEMOGLOBIN 10.9 gm/dL (12.0-15.0); LYMPHOCYTES 15.4 % (24.0-44.0); MCV 91.1 fL (80.0-100.0); PLATELET COUNT 490 thou/uL (150-400); POLYS 69.8 % (36.0-66.0); RBC 3.51 mil/uL (4.20-5.00); RDW 15.8 % (10.5-14.5); WBC 4.8 thou/uL (4.0-11.0)
[2019-10-09 07:55] LABS: ALBUMIN 2.6 g/dL (3.4-5.0); CALCIUM 8.4 mg/dL (8.5-10.1); CREATININE 0.4 mg/dL (0.6-1.0); POTASSIUM 4.6 mmol/L (3.5-5.1); TOTAL BILIRUBIN 0.3 mg/dL (<0.1-1.0); TOTAL PROTEIN 5.9 g/dL (6.4-8.2)
[2019-10-09 08:00] VITALS: BP 130/89
[2019-10-09 10:10] VITALS: BP 130/89
--- NOTE | 2019-10-09 14:23 | NUR ---
ASSUMED CARES AT 0700. PT AWAKE, ALERT AND ORIENTED*4. ANXIOUS. C/O PAIN (ABDOMINAL GEN AND LEFT HIP) TYLENOL ADMINISTERED SCHEDULED. VITALS STABLE FOR THIS PT. SODIUM 128, PROVIDER NOTIFIED, PT ENCOURAGED AND PUSHED TO ADD EXTRA SALT TO FOOD (EXTRA SALT PROVIDED). LEFT HIP DRESSING REMAINS DRY AND INTACT. PT EATING 50% OF HER MEALS, C/O POOR APPETITE. DRINKING LOADS OF WATER, ENCOURAGED TO COUNT DOWN R/T TO LOW SODIUM. UP WITH 1 MIN ASSIST, GB AND WALKER. Q1H VISUAL CHECKS. CALL LIGHT WITHIN REACH. FALL PRECAUTIONS IN PLACE.
[2019-10-09 20:12] VITALS: BP 151/89
--- NOTE | 2019-10-10 05:00 | NUR ---
UP TO BEDSIDE COMMODE WITH STANDBY ASSIST, VOIDING APPROX EVERY 45 MINUTES. SECOND BM SO FAR THIS MORNING. FREQUENT REQUESTS FOR APPLE JUICE, ORANGE JUICE, AND VERY HOT WATER.
[2019-10-10 08:00] VITALS: BP 157/91
--- NOTE | 2019-10-10 16:16 | NUR ---
ASSUMED CARES AT 0700. PT AWAKE, ALERT AND ORIENTED*4. FORGETFUL, ANXIOUS. C/O GENERALISED BODY ACHE AND LEFT HIP PAIN, ACETAMINOPHEN ADMINISTERED ORDERED. HIP INCISION REMAINS DRY AND CARISSA ARE INTACT. DRESSING CHANGED. ABDOMEN REMAINS SOFT AND FLAT. *1 BM TODAY, AMITIZA AND LACTULOSE ADMINISTERED PER ORDER. PT CONTINUES TO "DIG OUT" STOOL FROM HER BOWELS WITH BARE HAND, STATING THAT IT GETS STUCK AND SHE HAS TO DIG IT OUT. PT EXCITED ABOUT DC TOMORROW. PT IS NOW MOD I IN ROOM. HOURLY ROUNDING. CALL LIGHT WITHIN REACH.
[2019-10-10 20:29] VITALS: BP 134/87
--- NOTE | 2019-10-11 02:38 | NUR ---
UP TO BSC FREQUENTLY, CARISSA DRY AND INTACT. PATIENT LOOKING FORWARD TO GOING HOME TODAY. CONTINUES HER HABIT OF DRINKING WARM WARM WATER AND JUICES. TOLERATED 2 SLICES BREAD FOR HS SNACK.
--- NOTE | 2019-10-11 07:43 | NUR ---
ASSUMED CARES AT 0700.DIDN'T SLEEP WELL LAST NIGHT BUT THE PILL HELPS ME RELAX. PT AWAKE, ALERT AND ORIENTED*4. FORGETFUL, ANXIOUS. C/O GENERALISED BODY ACHE AND LEFT HIP PAIN, ACETAMINOPHEN ADMINISTERED EARLIER. LEFT HIP CARISSA REMOVED. STERI STRIPS APPLIED. ABDOMEN REMAINS SOFT AND FLAT. LAST BM WAS YESTERDAY. AMITIZA AND LACTULOSE ADMINISTERED PER ORDER. PT CONTINUES TO "DIG OUT" STOOL FROM HER BOWELS WITH BARE HAND WITHOUT DIFFICULTY. PT EXCITED ABOUT DC TODAY. PT IS NOW MOD I IN ROOM. OFFERED SUPPORTIVE CARE. ENCOURAGE PT TO VOICE HER NEEDS. MEDS GIVEN. HOURLY ROUNDING. CALL LIGHT WITHIN REACH. TERESSA AWARES PT DISCHARGE TODAY. WILL CONTINUE TO MONITOR.
[2019-10-11 08:00] VITALS: BP 163/104
[2019-10-11] MEDS ORDERED: ZOFRAN ODT4 MG DISSOLVE ×2 (08:16→13:05)
[2019-10-11] MEDS ORDERED: VITAMIN B-12500 MCG PO ×2 (08:16→13:05)
[2019-10-11] MEDS ORDERED: TYLENOL EXTRA500 MG PO (08:16)
[2019-10-11] MEDS ORDERED: BISACODYL10 MG RECTAL ×2 (08:16→13:05)
[2019-10-11] MEDS ORDERED: MELATONIN5 M1 PO ×2 (08:16→13:05)
[2019-10-11] MEDS ORDERED: ASA81BEC PO ×2 (08:17→13:05)
--- NOTE | 2019-10-11 08:38 | NUR ---
she is to dc home today with [facility] ( pt, ot, st, nursing and sw).
[2019-10-11] MEDS ORDERED: LINZESS145 MCG PO (11:35)
--- NOTE | 2019-10-11 12:07 | NUR ---
PT DISCHARGING TODAY TO HOME WITH [facility] FAXED DC ORDERS/SUMMARY SPOKE WITH DANIEL IN INTAKE SHE RECEIVED ORDERS AND WILL NOTIFY PT TIME OF VISITS.
[2019-10-11] MEDS ORDERED: TYLENOL325 MG PO (13:05)
[2019-10-11] MEDS ORDERED: MIRALAX17 GM PO (13:05)
== END 2019-10-11 13:52 | disposition home health service (06) | DRG 535 ==
PROVIDERS: Nurse Practitioner; ADMIT Physical Medicine & Rehabilitation
DX: S72.002A Fracture of unspecified part of neck of left femur, initial encounter for closed fracture (principal); E43 Unspecified severe protein-calorie malnutrition; E87.1 Hypo-osmolality and hyponatremia; E87.6 Hypokalemia; E83.42 Hypomagnesemia; G47.00 Insomnia, unspecified; W18.39XA Other fall on same level, initial encounter; Y93.89 Activity, other specified; Y92.89 Other specified places as the place of occurrence of the external cause; Y99.8 Other external cause status; M81.0 Age-related osteoporosis without current pathological fracture; K59.09 Other constipation; F43.20 Adjustment disorder, unspecified; F32.9 Major depressive disorder, single episode, unspecified; R41.9 Unspecified symptoms and signs involving cognitive functions and awareness; D3A.012 Benign carcinoid tumor of the ileum; D64.9 Anemia, unspecified
CPT/HCPCS: 10112

== ENCOUNTER 2020-06-14 16:35 | Inpatient (IN) | payer OTHER ==
[~2020-06-14] VITALS: Ht 152.4 cm; Wt 41.7 kg
[~2020-06-14 16:35] MED LIST changes: +ASA81BEC PO; +BISACODYL10 MG RECTAL; +ENOXAPARIN30 MG/0.1 SUBQ; +LINZESS145 MCG PO; +MELATONIN5 M1 PO; +NORCO 5-325 TA1 EAC1 PO; +SENNA-TIME S T1 EACH PO; +TYLENOL EXTRA500 MG PO; +TYLENOL325 MG PO; +VITAMIN B-12500 MCG PO; +ZOFRAN ODT4 MG DISSOLVE
[2020-06-14 16:37] VITALS: BP 148/92
[2020-06-14 17:00] LABS: HEMATOCRIT 39.8 % (37.0-47.0); HEMOGLOBIN 13.3 gm/dL (12.0-15.0); MCH 30.8 pg (26.0-34.0); MCHC 33.4 g/dL (28.0-37.0); MCV 92.2 fL (80.0-100.0); PLATELET COUNT 234 thou/uL (150-400); RBC 4.32 mil/uL (4.20-5.00); RDW 12.4 % (10.5-14.5); WBC 5.1 thou/uL (4.0-11.0)
[2020-06-14 17:15] LABS: CALCIUM 8.4 mg/dL (8.5-10.1); CREATININE 0.4 mg/dL (0.6-1.0)
[2020-06-14 17:17] LABS: POTASSIUM 3.9 mmol/L (3.5-5.1)
[2020-06-14 17:20] LABS: ALBUMIN 3.6 g/dL (3.4-5.0); MAGNESIUM 2.1 mg/dL (1.8-2.4); TOTAL BILIRUBIN 0.7 mg/dL (0.2-1.0); TOTAL PROTEIN 6.7 g/dL (6.4-8.2)
[2020-06-14 17:28] LABS: ABSOLUTE NEUTROPHILS 3.8 thou/uL (1.4-8.2)
[2020-06-15 02:11] LABS: URINE BILIRUBIN NEGATIVE (Negative); URINE BLOOD 2+ (Negative); URINE CLARITY CLEAR; URINE COLOR YELLOW; URINE GLUCOSE-RANDOM* NEGATIVE (Negative); URINE KETONES NEGATIVE (Negative); URINE NITRITE-REFLEX NEGATIVE (Negative); URINE PROTEIN (DIPSTICK) NEGATIVE (Negative); URINE SPECIFIC GRAVITY <= 1.005 (1.005-1.035)
[2020-06-15 02:22] LABS: URINE LEUKOCYTES-REFLEX 2+ (Negative)
[2020-06-15 02:34] LABS: CASTS None Seen /LPF (None Seen); MUCUS None Seen strn/LPF (None Seen); SQUAMOUS None Seen /LPF (0-3); URINE RBC 0-2 Rare /HPF (0-2)
[2020-06-15 02:35] LABS: BACTERIA-REFLEX None Seen /HPF (None Seen); CRYSTALS None Seen /LPF (None Seen); URINE WBC-REFLEX 0-5 Rare /HPF (0-5)
[2020-06-15 05:52] LABS: HEMATOCRIT 32.5 % (37.0-47.0); MCH 31.3 pg (26.0-34.0); MCHC 33.9 g/dL (28.0-37.0); MCV 92.2 fL (80.0-100.0); RBC 3.52 mil/uL (4.20-5.00); RDW 12.4 % (10.5-14.5); WBC 5.1 thou/uL (4.0-11.0)
[2020-06-15 06:11] LABS: CALCIUM 7.8 mg/dL (8.5-10.1); CREATININE 0.3 mg/dL (0.6-1.0); POTASSIUM 3.6 mmol/L (3.5-5.1)
[2020-06-15 06:52] VITALS: BP 112/67
[2020-06-15 07:31] VITALS: BP 123/75
--- NOTE | 2020-06-15 07:48 | EKG ---
[address] [place] [address] ELECTROCARDIOGRAM REPORT Name: ANNITAVICENTEDAVE Sandra Room #: 170-8 ADM IN M.R.#: [id number] Admission: 06/14/20 Attend Phys: Vinod Gutierrez, Discharge: Date of : 48 Report #: [id number] [facility] ED Test Date: 2020-06-14 Test Time: 17:45:23 Pat Name: DAVE ARIZA Department: Room: 170 Gender: F Sofa Inspector: MATT : 1950 Requested By: Janene Miranda Order Number: [id number] MD: Jose Luis Reilly Measurements Intervals [place] Rate: 71 P: 84 MN: 158 QRS: -58 QRSD: 142 T: QT: 442 QTc: 481 Interpretive Statements Sinus rhythm Right ventricular conduction delay Leftward axis Compared to ECG 05/13/2018 22:30:21 Premature ventricular complexes are no longer present Electronically Signed On 06-15-2020 7:47:47 JOURNALISM PROFESSOR by Jose Luis Reilly [email or web address] <ELECTRONICALLY SIGNED> By: Jose Luis Reilly MD, [facility] 06/15/20 0747 1745 174 Jose Luis Reilly MD, [facility] /EPI
[2020-06-15 09:45] VITALS: BP 119/74
--- NOTE | 2020-06-15 13:01 | NUR ---
PATIENT ARRIVED TO UNIT AT APPROXIMATELY 0749. ADMISSION HX, EDUCATION, AND PATIENT BELONGINGS DOCUMENTED. PATIENT GIVEN ADMISSION PACKET BUT STATES "IT'S JUST TOO PAINFUL TO SIGN". SCD'S AT BEDSIDE; PATIENT STATES SHE WILL "GIVE THEM A TRY AT BEDTIME". ORDERS ACKNOWLEDEGED AND IMPLEMENTED. XR AND CT RESULTS IN; CALLING PROVIDER TO INFORM. PATIENT WAS ASSISTED WITH REQUESTING ALTERNATIVE LUNCH. NURSING STAFF ATTEMPTED TO REPOSITION BUT PATIENT WAS UNABLE TO GET COMFORTABLE. PATIENT REFUSES TURNS BUT ALLOWS US TO REPOSIYION HER FROM SUPINE TO RT SIDE. PLAN FOR PATIENT IS POSSIBLE DISCHARGE BACK TO FACILITY W PAIN MANAGEMENT OPTIONS, PER MD. WILL CONTINUE TO MONITOR AND FOLLOW PLAN OF CARE
[2020-06-16 02:10] VITALS: BP 115/76
--- NOTE | 2020-06-16 02:15 | NUR ---
Assumed care of patient this pm shift. Patient cooperative, appears anxious. Alert and oriented x4. Takes medications whole with thin fluids. Breath sounds clear, diminished in the bases. Assessment shows blood pressure 115/76, spo2 98%, resp 16, temp 98.3. Patient is considered a high falls risk, falls precautions in place. Tolentino catheter in place. We will continue to monitor per hospital policy.
--- NOTE | 2020-06-16 07:43 | HC ---
[facility] [place] [address] CONSULTATION Name: DAVE ARIZA Room #: 453-P [facility] IN M.R.#: [id number] Admission: 06/14/20 Attend Phys: Vinod Gutierrez, Discharge: Date of : 46 Report #: [id number] THIS REPORT FOR: cc: Nishant Haji MD, Christopher B. MD Clymer, David J. MD ~ DATE OF SERVICE: 06/14/2020 CHIEF COMPLAINT: Fall at home with left pelvis fracture. HISTORY OF PRESENT ILLNESS: This very small and very frail 70-year-old female has a history of previous GI cancer. She is very small and quite frail, but has still been living fairly independently at home with the assistance of her sister. She fell last September, resulting in a left proximal femur fracture, treated with antegrade femoral nail fixation. She has done surprisingly well following that and has returned to her own home again with some limited family assistance; however, she states she is quite frail and has poor balance. As a result, she fell again. She has been admitted by the Trauma Service. X-rays and CT scan of the pelvis reveal fractures of the left hemipelvis including nondisplaced fracture of the left ilium extending to the SI joint as well as minimal to nondisplaced fractures of the superior and inferior pubic ramus on the left side. At the time of my evaluation, the patient is currently in the CT scanner and so I had a limited opportunity for exam. We did have a good discussion, however. She notes she does have some new pain in her back as well as significant pain in the left pelvis. She states she has been able to stand and walk with some limited assistance, but she is quite concerned about her balance and admits that probably she should use a wheelchair at this point. She notes significant left pelvic discomfort, but denies much pain radiating down either leg. She does have some moderate generalized back discomfort. Imaging studies reveal severe degenerative change in both hips and severe osteoporosis involving the entire pelvis and femurs. She has evidence of old compression fractures in the lumbar spine with vertebroplasty. The x-rays and CT scan confirmed fractures of the left hemipelvis with a transverse fracture of the ilium and nondisplaced fractures at the superior and inferior pubic ramus. Further imaging with CT scan of the thoracic and lumbar spine is pending at the time of this dictation. In general, summary, I see nothing at this point, which would require any surgical intervention. She will, however, have significant pain with the new pelvis fractures. I have explained that she does indeed need much more help and probably cannot live independently at this point. She probably will require wheelchair protection and sufficient assistance as needed. In the short run, I think pain management and some therapy assistance would be most appropriate. She once again states that she plans to go back to her own home and she is quite [address] [address] CONSULTATION Name: VICENTE SNIDERCIE Sandra Room #: 453-P [facility] IN M.R.#: [id number] Admission: 06/14/20 Attend Phys: Vinod Gutierrez, Discharge: Date of : 46 Report #: [id number] mora and committed to that option, but I am just not certain that she can manage this with her current level of pain and poor balance. At this point, however, I see nothing which would suggest the need for any surgical intervention. I will comment further once I have a chance to review her new imaging studies and offer a more thorough objective physical examination. <ELECTRONICALLY SIGNED> By: Pa Gregg MD 06/16/20 0743 1132 [id number] Pa Gregg MD /nt
[2020-06-16 08:12] VITALS: BP 138/83
--- NOTE | 2020-06-16 10:28 | NUR ---
ASSUMED PT CARE THIS AM. PT VERY ANXIOUS, COMPLAINS OF PAIN IN HER PELVIS THAT IS MANAGED BY MEDS PER EMAR. FALL PRECAUTIONS IN PLACE. ENCOURAGED TO WORK WITH PHSICAL THERAPY TODAY. IV PATENT, MEDS INFUSING WELL. ON TELE. REPOSITIONING ALLOWED.
--- NOTE | 2020-06-16 14:49 | NUR ---
PT ADMITTED RELATED TO UTI,SEPSIS,BELLE. CM REVEIWED CHART AND SPOKE WITH CARE TEAM. CM MET WITH PT AT BEDSIDE THIS DAY. PT APPEARED TO BE A&O X4 BUT A LITTLE EVASIVE. PT INDICATED SHE RESIDES IN AN APARTMENT ALONE WITH NO STEPS TO ENTER AND NO STEPS INSIDE. PT INDICATED SHE HAS A FWW, CANE, AND WHEELCHAIRS FOR HOME USE. PT INDICATED SHE HAD BEEN INDEPDENENT WITH [facility] TC OPERATOR. PT INDICATED SHE HAD BEEN TO 5 IN THE PAST AND [facility]. PT INDICATED SHE WOULD BE RECEPTIVE TO GOING TO EITHER [facility] MEDICALLY STABLE. 5N ASSESSED AND INDICATED PT IS MORE APPROPRIATE FOR SKILLED REFERRAL SENT TO [facility]. CM TO FOLLOW INDICATED WITH DC PLANNING.
[2020-06-16 16:07] VITALS: BP 118/81
[2020-06-16 19:49] VITALS: BP 132/82
--- NOTE | 2020-06-16 20:30 | NUR ---
Pt. non-compliant with the tele monitor and it was taken off. Spoke to Ce JOHN and she wants patient on tele due to Na level. Explained to the patient the importance of putting the tele back on. She became upset and said I do not want it, but eventually was agreeable.
--- NOTE | 2020-06-17 04:09 | NUR ---
Pt. rested quietly at intervals during the night when checked on during frequent rounds. She can become easily anxious at times. She c/o pelvic pain, but refused any pain meds upon assessment. Pt. encouraged to call if she needs anything for pain. Bed alarm is on.
[2020-06-17 07:03] LABS: HEMATOCRIT 36.1 % (37.0-47.0); MCHC 33.2 g/dL (28.0-37.0); MCV 93.3 fL (80.0-100.0); RBC 3.87 mil/uL (4.20-5.00); RDW 12.2 % (10.5-14.5); WBC 6.5 thou/uL (4.0-11.0)
[2020-06-17 07:09] LABS: CALCIUM 8.3 mg/dL (8.5-10.1); CREATININE 0.3 mg/dL (0.6-1.0); POTASSIUM 3.7 mmol/L (3.5-5.1)
[2020-06-17 10:46] VITALS: BP 146/96
--- NOTE | 2020-06-17 13:37 | NUR ---
REFERRAL SENT TO [facility] THIS AM. WE HAD BEEN WAITING ON TEHRAPY EVALS YESTERDAY. OT HAS SINCE SEEN PT BUT PT HAS VARIENCED EACH VISIT. NO PT EVALS OF THIS NOTE. REFERRAL STILL SENT. CARE TEAM INDICATED THAT PT IS MEDICALLY STABLE TO DC. COVID NEGATIVE 06/16. CM SPOKE WITH PT'S SISTER AND SHE IS ALSO AGREEABLE WITH PLAN FOR SHORT TERM SKILLED REHABN STAY AT [facility]. CM TO FOLLOW INDICATED WITH DC PLANNING.
[2020-06-17 16:30] VITALS: BP 137/95
--- NOTE | 2020-06-17 18:26 | NUR ---
PT A&O TO SELF, CONFUSED, HAS PAIN BUT REFUSED PAIN MEDICATION. VSS, ASSESSEMENT COMPLETED, MEDS GIVEN ORDERED. PATIENT REFUSES REPOSITIONING. NO SIGNS OF DISTRESS.
[2020-06-17 19:47] VITALS: BP 139/85
--- NOTE | 2020-06-18 06:03 | NUR ---
Pt. rested quietly at short intervals during the night when checked on during frequent rounds. She c/o chronic back pain and po pain med given along with warm aqua K-pad with little relief. Pt. refused to be turned or repositioned. Bed alarm is on.
[2020-06-18 07:25] VITALS: BP 145/89
--- NOTE | 2020-06-18 13:09 | NUR ---
PT A&O TO SELF, VSS, PAIN IN BACK. PATIENT REFUSED PAIN MEDICATION AND PAIN PATCH, PATIENT ALSO REFUSED TO BE TURNED. PATIENT DISCHARGED TO FACILITY. PATIENTS TAVERAS REMOVED, IV REMOVED. NO SIGNS OF DISTRESS, ALL BELONGINGS SENT WITH PATIENT.
--- NOTE | 2020-06-18 14:33 | NUR ---
[facility] INDICATED THEY CAN ACCEPT TO THIS DAY. [facility] ARRANGED FOR 11:30. CM INFORMED PT AND PT'S SISTER. THEY ARE AWARE AND AGREEABLE. CHART COPY MADE. ORDERES FAXED. NURSE GIVEN NUMBER FOR REPORT. NO OTHER CM INTERVENTION INDICATED. CASE CLOSED.
== END 2020-06-18 12:20 | DRG 535 ==
LOC: ER 16:35 → 4W 18:51 → EROBS 18:51 → 4W 06-15 07:32
PROVIDERS: Hospitalist; Nurse Practitioner Family; Physician Assistant; ADMIT Surgery; ATTEND Surgery
DX: S32.592A Other specified fracture of left pubis, initial encounter for closed fracture (principal); E43 Unspecified severe protein-calorie malnutrition; S32.029A Unspecified fracture of second lumbar vertebra, initial encounter for closed fracture; S32.039A Unspecified fracture of third lumbar vertebra, initial encounter for closed fracture; S22.069A Unspecified fracture of T7-T8 vertebra, initial encounter for closed fracture; S22.079A Unspecified fracture of T9-T10 vertebra, initial encounter for closed fracture; E87.1 Hypo-osmolality and hyponatremia; R64 Cachexia; Z68.1 Body mass index [BMI] 19.9 or less, adult; Z20.822 Contact with and (suspected) exposure to COVID-19; K59.00 Constipation, unspecified; D3A.019 Benign carcinoid tumor of the small intestine, unspecified portion; D64.9 Anemia, unspecified; F41.9 Anxiety disorder, unspecified; S32.302A Unspecified fracture of left ilium, initial encounter for closed fracture; Z88.8 Allergy status to other drugs, medicaments and biological substances; W18.39XA Other fall on same level, initial encounter; Y93.89 Activity, other specified; Y92.89 Other specified places as the place of occurrence of the external cause; Y99.8 Other external cause status; Z87.81 Personal history of (healed) traumatic fracture
CPT/HCPCS: 10045